=== PATIENT | male | born 2000 ===

== ENCOUNTER → 2020-05-22 11:31 | Outpatient (BNVA) | payer OTHER, SELFPAY | PROVIDERS: PCP Physician Assistant; Visit Provider Physician Assistant | DX: Z76.89 Persons encountering health services in other specified circumstances (principal) ==

== ENCOUNTER 2020-06-19 12:20 | Outpatient (REF) | payer OTHER, SELFPAY ==
--- NOTE | 2020-06-19 12:36 | XR_ITS ---
EXAMINATION: XR CLAVICLE, LEFT CLINICAL INFORMATION: Follow-up fracture. COMPARISON: Left clavicle 05/13/2020 TECHNIQUE: Two views of the left clavicle. FINDINGS: There is slowly healing left midclavicular fracture stabilized with superior metallic plate and screws in satisfactory alignment. XR/XR clavicle LT IMPRESSION: Stabilized left midclavicular fracture with metallic plate and screws and minimal callus formation.
== END 2020-06-19 12:21 | disposition home or self-care (01) ==
LOC: HO.HOSX 12:20
PROVIDERS: PCP Physician Assistant; Referring Provider Physician Assistant; Visit Provider Orthopaedic Surgery
DX: S42.009A Fracture of unspecified part of unspecified clavicle, initial encounter for closed fracture (principal)
CPT/HCPCS: 73000; 99212

== ENCOUNTER 2020-06-25 16:03 | Outpatient (REF) | payer OTHER, SELFPAY ==
[2020-06-25 16:45] LABS: COVID-19 Test Negative (Negative)
== END 2020-06-25 16:04 | disposition home or self-care (01) ==
LOC: HO.LAB 16:03
PROVIDERS: Visit Provider Internal Medicine
DX: Z20.828 Contact with and (suspected) exposure to other viral communicable diseases (principal)
CPT/HCPCS: 87635

== ENCOUNTER 2020-07-28 07:08 | Outpatient (REF) | payer OTHER, SELFPAY ==
[2020-07-28 07:46] LABS: COVID-19 Test Negative (Negative)
== END 2020-07-28 07:09 | disposition home or self-care (01) ==
LOC: HO.EMPCOV 07:08
PROVIDERS: Visit Provider Internal Medicine
DX: Z20.828 Contact with and (suspected) exposure to other viral communicable diseases (principal)
CPT/HCPCS: 87635; C9803

== ENCOUNTER 2020-08-11 07:46 | Outpatient (REF) | payer OTHER, SELFPAY | END 2020-08-11 07:47 | disposition home or self-care (01) | LOC: HO.HOSX 07:46 | PROVIDERS: Visit Provider Orthopaedic Surgery | DX: Z13.89 Encounter for screening for other disorder (principal) ==

== ENCOUNTER 2020-08-25 08:23 | Outpatient (REF) | payer OTHER, SELFPAY ==
--- NOTE | 2020-08-25 08:55 | XR_ITS ---
EXAMINATION: XR CLAVICLE, LEFT CLINICAL INFORMATION: Clavicle fracture COMPARISON: Previous x-ray most recent May 2020 TECHNIQUE: Two views of the left clavicle. FINDINGS: There is a side plate and 8 screws transfixing the left clavicle fracture. Orthopedic hardware is intact. Comminuted left mid clavicle fracture is still seen and appears unchanged from most recent exam 06/19/2020. Soft tissues are unremarkable. XR/XR clavicle LT IMPRESSION: ORIF of left clavicle fracture. Comminuted fracture appears unchanged from May 2020.
== END 2020-08-25 08:24 | disposition home or self-care (01) ==
LOC: HO.HOSX 08:23
PROVIDERS: Visit Provider Orthopaedic Surgery
DX: S42.002A Fracture of unspecified part of left clavicle, initial encounter for closed fracture (principal)
CPT/HCPCS: 73000; 99212

== ENCOUNTER 2020-09-29 08:00 | Outpatient (REF) | payer OTHER, SELFPAY ==
--- NOTE | ~2020-09-29 | XR_ITS ---
EXAMINATION: XR CLAVICLE, LEFT CLINICAL INFORMATION: Fracture. COMPARISON: Multiple priors, most recent left clavicle radiographs dated 08/25/2020 TECHNIQUE: PA and tangential views of the left clavicle. FINDINGS: Superior stabilization plate with fixation screws in unchanged alignment. No acute hardware fracture. No perihardware lucency to suggest loosening or infection. Redemonstration of a clavicular fracture in unchanged anatomic alignment with associated sclerosis and mild interval new bone/callus formation. No lytic or blastic osseous lesion. XR/XR clavicle LT IMPRESSION: Left clavicular ORIF without evidence of complication. Redemonstration of a clavicular fracture with mild interval new bone/callus formation.
== END 2020-09-29 08:01 | disposition home or self-care (01) ==
LOC: HO.HOSX 08:00
PROVIDERS: Visit Provider Orthopaedic Surgery
DX: S42.002G Fracture of unspecified part of left clavicle, subsequent encounter for fracture with delayed healing (principal)
CPT/HCPCS: 73000; 99212

== ENCOUNTER 2020-10-08 11:15 | Emergency (ER) | payer OTHER, SELFPAY | END 2020-10-08 12:39 | disposition left against medical advice (07) | PROVIDERS: Emergency Provider Emergency Medicine; PCP Physician Assistant | DX: M54.5 Low back pain (principal) ==

== ENCOUNTER 2020-11-20 06:12 | Outpatient (REF) | payer OTHER, SELFPAY ==
[2020-11-20 06:46] LABS: COVID-19 Test Negative (Negative)
== END 2020-11-20 06:13 | disposition home or self-care (01) ==
LOC: HO.LAB 06:12
PROVIDERS: Visit Provider Internal Medicine
DX: Z20.822 Contact with and (suspected) exposure to COVID-19 (principal)
CPT/HCPCS: 36415; 87635

== ENCOUNTER 2020-11-24 07:28 | Outpatient (REF) | payer OTHER, SELFPAY ==
--- NOTE | ~2020-11-24 | XR_ITS ---
EXAMINATION: XR CLAVICLE, LEFT CLINICAL INFORMATION: Clavicular fracture. COMPARISON: Multiple priors, most recent left clavicle radiographs dated 09/29/2020. TECHNIQUE: Straight AP and cephalad angulated AP views of the left clavicle. FINDINGS: Redemonstration of a dorsal clavicular stabilization plate with fixation screws. No acute hardware fracture. No perihardware lucency to suggest loosening or infection. Mid left clavicular fracture in unchanged anatomic alignment with interval new bone/callus formation when compared to the prior examination. No osseous erosion. No abnormal soft tissue calcification. XR/XR clavicle LT IMPRESSION: Left clavicular ORIF without evidence of hardware complication. Mid left clavicular fracture in unchanged alignment with increased new bone/callus formation.
== END 2020-11-24 07:29 | disposition home or self-care (01) ==
LOC: HO.HOSX 07:28
PROVIDERS: Visit Provider Orthopaedic Surgery
DX: S42.002A Fracture of unspecified part of left clavicle, initial encounter for closed fracture (principal); X58.XXXA Exposure to other specified factors, initial encounter; Y93.9 Activity, unspecified; Y92.9 Unspecified place or not applicable; Y99.8 Other external cause status
CPT/HCPCS: 73000; 99212

== ENCOUNTER 2020-12-26 08:17 | Outpatient (REF) | payer OTHER, SELFPAY ==
[2020-12-26 08:36] LABS: COVID-19 Test Negative (Negative); IDNOW Serial# 55D5AD1C
== END 2020-12-26 08:18 | disposition home or self-care (01) ==
LOC: HO.LAB 08:17
PROVIDERS: Visit Provider Internal Medicine
DX: Z20.822 Contact with and (suspected) exposure to COVID-19 (principal)
CPT/HCPCS: 36415; 87635; C9803

== ENCOUNTER 2021-01-22 12:24 | Outpatient (REF) | payer OTHER, SELFPAY | END 2021-01-22 12:25 | disposition home or self-care (01) | LOC: HO.HOSX 12:24 | PROVIDERS: Visit Provider Orthopaedic Surgery | DX: Z13.89 Encounter for screening for other disorder (principal) ==

== ENCOUNTER 2021-02-17 16:56 | Emergency (ER) | payer OTHER, SELFPAY ==
--- NOTE | ~2021-02-17 | XR_ITS ---
EXAMINATION: XR SHOULDER, LEFT CLINICAL INFORMATION: Shoulder pain following trauma. COMPARISON: Most recent left clavicle radiographs dated 11/24/2020. TECHNIQUE: AP, Grashey, scapular Y views of the left shoulder. FINDINGS: No acute fracture or dislocation. No joint space narrowing or marginal osteophytes. No osseous erosion. Stabilization plate and fixation screws at the clavicle without acute hardware fracture. No periarticular lucency to suggest loosening or infection. Chronic mid clavicular fracture with increase osseous bridging when compared to the prior examination. No change in osseous alignment. XR/XR shoulder LT min 2V IMPRESSION: 1. No acute fracture or dislocation. 2. Left clavicular ORIF without evidence of hardware complication. Increased interval osseous bridging across the fracture when compared to the most recent clavicular radiographs.
[2021-02-17 17:04] VITALS: BP 138/78; PULSE 77; RESP 18; TEMP 36.7; O2SAT 97; BMI 28.8
[2021-02-17 18:42] VITALS: BP 140/66; PULSE 69; RESP 16; O2SAT 96
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
== END 2021-02-17 21:08 | disposition home or self-care (01) ==
PROVIDERS: Emergency Provider Emergency Medicine; PCP Physician Assistant
DX: S43.402A Unspecified sprain of left shoulder joint, initial encounter (principal); V49.60XA Unspecified car occupant injured in collision with unspecified motor vehicles in traffic accident, initial encounter; Y93.9 Activity, unspecified; Y92.410 Unspecified street and highway as the place of occurrence of the external cause; Y99.9 Unspecified external cause status
CPT/HCPCS: 73030; 99283; 99284

== ENCOUNTER 2021-03-09 12:39 | Outpatient (REF) | payer OTHER, SELFPAY | END 2021-03-09 12:40 | disposition home or self-care (01) | LOC: HO.HOSX 12:39 | PROVIDERS: Visit Provider Orthopaedic Surgery | DX: Z13.89 Encounter for screening for other disorder (principal) ==

== ENCOUNTER 2021-03-23 09:04 | Emergency (ER) | payer OTHER, SELFPAY ==
--- NOTE | ~2021-03-23 | XR_ITS ---
EXAMINATION: XR KNEE, RIGHT XR KNEE, LEFT CLINICAL INFORMATION: Bilateral knee pain COMPARISON: Radiographs left knee 06/17/2014 TECHNIQUE: Each knee is imaged in 4 views. There are a total of 8 views. FINDINGS: Right: Normal bony mineralization. No fracture, dislocation, or destructive process. There is a fibrous cortical defect at the posterior lateral aspect diaphyseal metaphyseal junction distal femur measuring 1.4 x 0.7 cm. There is questionable trace fluid suprapatellar bursa. No overt effusion. Hoffa's fat pad appears normal. There is no joint narrowing or erosive change or chondrocalcinosis. Left: Bony mineralization normal. No fracture, dislocation, destructive process, or suprapatellar effusion. Hoffa's fat pad appears normal. There is no joint narrowing or erosive change or chondrocalcinosis. XR/XR knee LT 4V IMPRESSION: 1. Right: Trace suprapatellar fluid. No fracture or destructive process. Incidental distal femoral fibrous cortical defect 1.4 x 0.7 cm. 2. Left: Normal.
--- NOTE | ~2021-03-23 | XR_ITS ---
EXAMINATION: XR KNEE, RIGHT XR KNEE, LEFT CLINICAL INFORMATION: Bilateral knee pain COMPARISON: Radiographs left knee 06/17/2014 TECHNIQUE: Each knee is imaged in 4 views. There are a total of 8 views. FINDINGS: Right: Normal bony mineralization. No fracture, dislocation, or destructive process. There is a fibrous cortical defect at the posterior lateral aspect diaphyseal metaphyseal junction distal femur measuring 1.4 x 0.7 cm. There is questionable trace fluid suprapatellar bursa. No overt effusion. Hoffa's fat pad appears normal. There is no joint narrowing or erosive change or chondrocalcinosis. Left: Bony mineralization normal. No fracture, dislocation, destructive process, or suprapatellar effusion. Hoffa's fat pad appears normal. There is no joint narrowing or erosive change or chondrocalcinosis. XR/XR knee RT 4V IMPRESSION: 1. Right: Trace suprapatellar fluid. No fracture or destructive process. Incidental distal femoral fibrous cortical defect 1.4 x 0.7 cm. 2. Left: Normal.
[2021-03-23 09:32] VITALS: BP 124/66; PULSE 63; RESP 18; TEMP 36.6; O2SAT 99; BMI 28.6
--- NOTE | 2021-03-23 10:00 | ED.EXTPRO ---
HPI - Extremity Problem General Chief complaint: Extremity Injury, Lower Stated complaint: Knees hurt Time Seen by Provider: 03/23/21 10:00 Source: patient Mode of arrival: ambulatory Limitations: no limitations History of Present Illness MD Complaint: joint paint Onset (ago): month(s) (1) Pain Consistency: intermittent Location: left, right and knee Quality: aching Radiation: none Relieving factors: nothing Exacerbating factors: weight bearing (on his feet all the time at work) Associated symptoms: denies other symptoms Related Data Previous Rx's Medication Instructions Recorded bone stimulator #1 ea 10/09/20 naproxen 500 mg tablet 500 mg PO BID PRN #20 tab 02/17/21 Allergies Allergy/AdvReac Type Severity Reaction Status Date / Time No Known Allergies Allergy Verified 03/08/21 09:34 Review of Systems Review of Systems: Constitutional : No Fever, No Chills ENT/Mouth : No Ear Pain, No Hoarseness, No sore throat Eyes: No Eye Pain, No Swelling, No Redness, No Foreign Body Cardiovascular : No Chest Pain, No SOB Respiratory : No Cough, No Dyspnea Gastrointestinal : No Nausea, No Vomiting, No Diarrhea, No abdominal Pain Genitourinary : No Dysuria, No Hematuria Musculoskeletal : positive joint pain, No Myalgias, No Joint Swelling Skin : No Skin lacerations, No rash Neuro : No Weakness, No Numbness, No Loss of Consciousness, No Dizziness, No Headache Psych : No Anxiety/Panic, No Depression Heme/Lymph: no easy bruising, no Lymphadenopathy Endocrine : No Polyuria, No Polydipsia All other systems reviewed and are negative [facility] Past Medical History Medical History Clavicle fracture Pneumonia Surgical History History of lung surgery History of open reduction and internal fixation (ORIF) procedure (~05/13/20) Family History Family History Mother No problems noted. Father No problems noted. 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 Oriented X3. No acute distress. Eyes: Pupils equal, round and reactive to light. ENT: Pharynx normal. Neck: Normal inspection. Neck supple. CVS: Normal heart rate and rhythm. Pulses normal. Respiratory: No respiratory distress. Breath sounds normal. Abdomen: Soft and non-tender. Skin: Skin warm and dry. Normal skin color. Normal skin turgor. Extremities: No lower extremity edema. No calf ttp normal appearing knees Neuro: Oriented X 3. No motor deficit. No sensory deficit. MDM - Extremity (Nontraumatic) MDM Narrative Medical decision making narrative: 20 yo male with R and L knee pain x 1 month likely brought on by standing at work, overall the knees appear normal no signs of infection will obtain xrays for early signs of arthritis and lyme test, refer to PCP Discharge Plan Discharge Clinical Impression: Bilateral knee pain Patient Disposition: Home, Self-Care Instructions: Knee Pain (ED) Additional Instructions: return to ED for any worsening symptoms or concerns Prescriptions: No Action naproxen 500 mg tablet 500 mg PO BID PRN (Reason: pain) Qty: 20 RF: 0 (DME) bone stimulator See Rx Instructions .Route .MEDSUPPLY Qty: 1 RF: 0 Referrals: Physician,Unknown [Primary Care Provider] - 5 days (if not better - PCP) Stand Alone Forms: Work/School Release
[2021-03-24 09:06] LABS: Lyme Abs Screen <0.90 index
== END 2021-03-23 11:32 | disposition home or self-care (01) ==
PROVIDERS: Emergency Provider Emergency Medicine
DX: M25.562 Pain in left knee (principal); M25.561 Pain in right knee
CPT/HCPCS: 36415; 73564; 86617; 86618; 99284

== ENCOUNTER 2021-03-26 09:07 | Emergency (ER) | payer OTHER, SELFPAY ==
[2021-03-26 09:14] VITALS: BP 133/69; PULSE 70; RESP 16; TEMP 36; O2SAT 98; BMI 28.6
--- NOTE | 2021-03-26 09:19 | ED_ITS ---
HPI - Extremity Injury (Lower) General Chief Complaint: Extremity Injury, Lower Stated Complaint: knee problem Time Seen by Provider: 03/26/21 09:15 Source: patient Mode of arrival: ambulatory Limitations: no limitations History of Present Illness HPI Narrative: 20 y/o male presenting to the ER from home with bilateral knee pain for the last month. He was seen here for the same on 03/23 - had XR's and a Lyme test performed both of which were unremarkable. He reports continued knee pain when he is at work. No known specific injury or trauma. He is on his feet several hours per day and works several days in a row. He wear an unsupportive, cheap sneaker from [employer] and it feels like I'm walking on bricks. He denies numbness, tingling or weakness in either LE. MD complaint: knee injury Onset (ago): month(s) (1) Type of Injury: unknown Place: work Severity: moderate Relieving factors: nothing Exacerbating factors: weight bearing Other symptoms: none Related Data Previous Rx's Medication Instructions Recorded bone stimulator #1 ea 10/09/20 naproxen 500 mg tablet 500 mg PO BID PRN #20 tab 02/17/21 Allergies Allergy/AdvReac Type Severity Reaction Status Date / Time No Known Allergies Allergy Verified 03/08/21 09:34 Review of Systems Constitutional: Constitutional: Denies chills and Denies fever(s) Cardiovascular: Cardiovascular: Denies chest pain and Denies dyspnea Respiratory: Respiratory: Denies dyspnea Musculoskeletal: Musculoskeletal: Denies abnormal gait, Denies deformity, Reports arthralgias, Denies joint swelling, Denies limited range of motion, Denies muscle cramps, Denies muscle weakness, Denies numbness and Reports stiffness Integumentary/Breasts: Skin/Breast: Denies swelling Neurologic: Denies abnormal gait and Denies numbness Psychiatric: Psychiatric: Reports anxiety PMFSH Past Medical History Attestation statement: The following information was validated with the patient. Medical History Clavicle fracture Pneumonia Surgical History History of lung surgery History of open reduction and internal fixation (ORIF) procedure (~05/13/20) Family History Family History Mother No problems noted. Father No problems noted. 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 Oriented X3. No acute distress. HEENT: normal inspection CVS: Normal heart rate and rhythm. Pulses normal. Respiratory: No respiratory distress. Skin: Skin warm and dry. Normal skin color. Normal skin turgor. No rashes. Extremities: normal inspection of bilateral knees. normal ROM, no joint laxity appreciated. mild generalized tenderness without focal or point tenderness. no calf tenderness. no skin changes. Neuro: Oriented X 3. No motor deficit. No sensory deficit. Normal gait. Course Course Course Narrative: 20 y.o male presenting for the 2nd time this week with bilateral nontraumatic knee pain. XR's unremarkable and Lyme negative 3 days ago. We discussed importance of rest, ice, knee braces for support as well as changing his shoes to a more supportive sneaker. He agrees to make the above changes as well as follow up with his PCP and Orthopedics for further workup. He is stable for discharge home with supportive care. Discharge Plan Discharge Clinical Impression: Knee pain Qualifiers: Chronicity: unspecified Laterality: bilateral Qualified Code(s): M25.561 - Pain in right knee Patient Disposition: Home, Self-Care Instructions: Knee Pain (ED) Additional Instructions: Recommend trial of ibuproofen 600mg every 6-8 hours for knee pain - take with food. Rest. Use ice several times per day. Recommend new, supportive sneaker for work. Use knee braces or TIMOTHY wraps for support and compression. If no improvement with these measures, recommend following up with Orthopedics for further workup and management. Prescriptions: No Action naproxen 500 mg tablet 500 mg PO BID PRN (Reason: pain) Qty: 20 RF: 0 (DME) bone stimulator See Rx Instructions .Route .MEDSUPPLY Qty: 1 RF: 0 Referrals: Antonio Barton MD [Physician] - 1 week (bilateral knee pain) Stand Alone Forms: Work/School Release Interventions: ED Discharge Assessment Last Done: 03/26/21 09:55 Discharge Date/Time: 03/26/21 09:56
== END 2021-03-26 09:56 | disposition home or self-care (01) ==
LOC: HO.ED 09:22
PROVIDERS: Emergency Provider Emergency Medicine
DX: M25.561 Pain in right knee (principal); Z79.899 Other long term (current) drug therapy
CPT/HCPCS: 99283

== ENCOUNTER 2021-04-09 08:14 | Outpatient (REF) | payer OTHER, SELFPAY | END 2021-04-09 08:15 | disposition home or self-care (01) | LOC: HO.HOSX 08:14 | PROVIDERS: Visit Provider Physician Assistant | DX: Z13.89 Encounter for screening for other disorder (principal) ==

== ENCOUNTER → 2021-05-04 12:20 | Outpatient (BNVA) | payer OTHER, SELFPAY | PROVIDERS: Visit Provider Internal Medicine | DX: Z13.89 Encounter for screening for other disorder (principal) | CPT/HCPCS: 73140; 99203 ==

== ENCOUNTER 2021-05-07 12:29 | Outpatient (REF) | payer OTHER, SELFPAY ==
--- NOTE | ~2021-05-07 | XR_ITS ---
EXAMINATION: XR CLAVICLE, LEFT CLINICAL INFORMATION: Left clavicular fracture. COMPARISON: Most recent left shoulder radiographs dated 03/19/2021. TECHNIQUE: Straight AP and cephalad angulated AP views of the left clavicle. FINDINGS: Redemonstration of a superior stabilization plate and fixation screws in the left clavicle. No acute hardware fracture. No prior hardware lucency to suggest loosening or infection. Healed midclavicular fracture in unchanged anatomic alignment. No acute fracture or dislocation. No lytic or blastic osseous lesion. XR/XR clavicle LT IMPRESSION: Left clavicular ORIF without evidence of hardware complication. Healed left clavicular fracture in unchanged anatomic alignment.
== END 2021-05-07 12:30 | disposition home or self-care (01) ==
LOC: HO.HOSX 12:29
PROVIDERS: Visit Provider Orthopaedic Surgery
DX: S42.002A Fracture of unspecified part of left clavicle, initial encounter for closed fracture (principal)
CPT/HCPCS: 73000; 99212

== ENCOUNTER 2021-05-13 17:29 | Emergency (ER) | payer OTHER, SELFPAY ==
[2021-05-13 17:39] VITALS: BP 129/71; PULSE 87; RESP 16; TEMP 36.5; O2SAT 98; BMI 27.8
[2021-05-13 19:56] LABS: MANUAL DIFF FLAG NO
[2021-05-13 20:02] LABS: Basophils Percent Auto 0.3 % (0-2); Eosinophils Absolute Auto 0.2 X10*3/uL (0.0-0.4); Eosinophils Percent Auto 1.8 % (0-4); Hematocrit 44.7 % (42-52); Hemoglobin 14.5 g/dl (14.0-18.0); Imm Gran Abs Auto 0.04 X10*3/uL (0.00-0.03); Imm Gran Pct Auto 0.3 % (0.0-0.4); Lymphocytes Absolute Auto 1.5 X10*3/uL (1.2-4.9); Lymphocytes Percent Auto 12.9 % (20-40); Mean Corpuscular HGB Conc 32.4 g/dl (31.0-36.0); Mean Corpuscular Hemoglobin 26.1 pg (27.0-33.0); Mean Corpuscular Volume 80.5 fL (80-98); Mean Platelet Volume 9.2 fL (9.4-12.4); Monocytes Absolute Auto 0.7 X10*3/uL (0.1-1.2); Monocytes Percent Auto 5.5 % (2-11); Neutrophils Absolute Auto 9.3 X10*3/uL (2.0-8.3); Neutrophils Percent Auto 79.2 % (45-73); Platelet Count 280 X10*3/uL (160-400); Red Blood Count 5.55 X10*6/uL (4.60-5.80); Red Cell Distribution Width 13.3 % (11.0-16.0); White Blood Count 11.7 X10*3/uL (4.8-10.8)
[2021-05-13 20:11] LABS: Alanine Aminotransferase 22 U/L (0-40); Albumin Level 5.2 g/dL (3.5-5.0); Alkaline Phosphatase 78 U/L (39-117); Anion Gap 12 (12-20); Aspartate Amino Transferase 23 U/L (5-37); Bilirubin Direct 0.2 mg/dL (0.0-0.5); Bilirubin Total 0.6 mg/dL (0.0-1.0); Blood Urea Nitrogen 17 mg/dL (9-16); Calcium 10.2 mg/dL (8.4-10.2); Carbon Dioxide 27 mmol/L (22-29); Chloride 104 mmol/L (96-108); Creatinine Clr Calc Pharmacy 105.2; Estimated Glomerular Filt Rate > 60; Glucose Random 91 mg/dL (60-115); Lipase 18 U/L (8-78); Potassium 4.3 mmol/L (3.3-5.1); Sodium 139 mmol/L (135-145); Total Protein 8.7 g/dL (6.5-8.0)
--- NOTE | 2021-05-13 22:10 | ED_ITS ---
HPI - Abdominal Pain General Chief Complaint: Abdominal Pain Stated Complaint: Abdominal pain Time Seen by Provider: 05/13/21 22:10 Source: patient Mode of arrival: ambulatory Limitations: no limitations History of Present Illness HPI narrative: patient with epigastric pain for months. Patient was at the gym tonight and he felt nauseated and then vomited MD elicited complaint: abdominal pain Pertinent past history: none Onset (ago): month(s) Pain Consistency: intermittent Location: epigastric Severity: mild Exacerbating factors: nothing Relieving factors: nothing Associated symptoms: denies other symptoms Related Data Previous Rx's Medication Instructions Recorded bone stimulator #1 ea 10/09/20 naproxen 500 mg tablet 500 mg PO BID PRN #20 tab 02/17/21 pantoprazole 40 mg tablet,delayed 40 mg PO DAILY #20 tab 05/13/21 release (Protonix) Allergies Allergy/AdvReac Type Severity Reaction Status Date / Time No Known Allergies Allergy Verified 03/08/21 09:34 Review of Systems Constitutional: Reports no additional constitutional complaints Eyes: Reports no additional eye complaints Denies dizziness Cardiovascular: Reports no additional cardiovascular complaints Respiratory: Reports as per HPI Gastrointestinal: Reports no additional gastrointestinal complaints Musculoskeletal: Reports no additional musculoskeletal complaints Skin/Breast: Denies rash Reports system reviewed and no additional complaints, except as documented, Denies dizziness and Denies Sensory deficit (Neuro) Psychiatric: Denies anxiety Physical Exam Vital Signs: Vital Signs: Last Vital Signs Temp 97.7 F 05/13/21 17:39 Pulse 87 05/13/21 17:39 Resp 16 05/13/21 17:39 BP 129/71 05/13/21 17:39 Pulse Ox 98 05/13/21 17:39 Body Mass Index 27.8 Const: General: healthy appearing Nutritional Appearance: average body habitus Orientation/consciousness: oriented to person and patient oriented x3 Limitations: no limitations HENMT: Head: Yes normal to inspection Ears: external ears normal General nose exam: Normal external nose present Mouth: Normal oral and palatal mucosa present and oropharynx normal Throat: Yes posterior oropharynx normal Eyes: General: appearance normal, both eyes and all related structures Neck: Other: supple Neck: Yes normal visual inspection Chest: Chest palpation & inspection: normal inspection of the chest Resp: Auscultation: clear to auscultation bilaterally Cardio: Jugular venous distension: no JVD Rate: regular rate Rhythm: regular rhythm Heart sounds: S1 normal heart sound present and S2 normal heart sound present GI: Inspection: Yes normal to inspection Palpation (GI): Soft to palpation, nontender and No hepatosplenomegaly present Auscultation: normal bowel sounds : General: Yes no CVA tenderness Back/Spine/Pelvis: Back: no CVA tenderness Skin: General skin exam: no rashes or lesions noted Neuro: General: oriented to person and patient oriented x3 Cranial nerves: Yes CN's II-XII intact bilaterally Motor exam (neuro): 5/5 motor strength present throughout Sensory Exam: No Sensory deficit (Neuro) Extrem: General: Yes normal to inspection Psych: Appearance: grossly normal Course Reevaluation(s) Reevaluation #1: patient with a few month history of epigastric pain, Physical normal. vital, CBC and LFTs normal. Will start protonix and have patient follow up with pmd Time: 22:16 [facility] - Abdominal Pain Lab Data Result diagrams: 05/13/21 19:50 05/13/21 19:50 Labs: Lab Results 05/13/21 05/13/21 Range/Units 19:50 19:50 WBC 11.7 H (4.8-10.8) X10*3/uL RBC 5.55 (4.60-5.80) X10*6/uL Hgb 14.5 (14.0-18.0) g/dl Hct 44.7 (42-52) % MCV 80.5 (80-98) fL MCH 26.1 L (27.0-33.0) pg MCHC 32.4 (31.0-36.0) g/dl RDW 13.3 (11.0-16.0) % Plt Count 280 (160-400) X10*3/uL MPV 9.2 L (9.4-12.4) fL Immature Gran % (Auto) 0.3 (0.0-0.4) % Neut % (Auto) 79.2 H (45-73) % Lymph % (Auto) 12.9 L (20-40) % [place] % (Auto) 5.5 (2-11) % Eos % (Auto) 1.8 (0-4) % Baso % (Auto) 0.3 (0-2) % Lymph # (Auto) 1.5 (1.2-4.9) X10*3/uL [place] # (Auto) 0.7 (0.1-1.2) X10*3/uL Eos # (Auto) 0.2 (0.0-0.4) X10*3/uL Baso # (Auto) 0.0 (0.0-0.2) X10*3/uL Abs Immat Gran (auto) 0.04 H (0.00-0.03) X10*3/uL Absolute Neuts (auto) 9.3 H (2.0-8.3) X10*3/uL Absolute Nucleated RBC 0.000 (0.0-0.012) X10*3/uL Nucleated RBC % (auto) 0.0 (0.0-0.2) /100WBC Sodium 139 (135-145) mmol/L Potassium 4.3 (3.3-5.1) mmol/L Chloride 104 (96-108) mmol/L Carbon Dioxide 27 (22-29) mmol/L Anion Gap 12 (12-20) BUN 17 H (9-16) mg/dL Creatinine 1.24 (0.5-1.4) mg/dL Estim Creat Clear Calc 105.2 Estimated GFR > 60 Random Glucose 91 (60-115) mg/dL Calcium 10.2 (8.4-10.2) mg/dL Total Bilirubin 0.6 (0.0-1.0) mg/dL Direct Bilirubin 0.2 (0.0-0.5) mg/dL AST 23 (5-37) U/L ALT 22 (0-40) U/L Alkaline Phosphatase 78 (39-117) U/L Total Protein 8.7 H (6.5-8.0) g/dL Albumin 5.2 H (3.5-5.0) g/dL Lipase 18 (8-78) U/L Discharge Plan Discharge Clinical Impression: Gastritis and duodenitis Patient Disposition: Home, Self-Care Instructions: Gastritis (ED), Duodenitis (ED) Prescriptions: New pantoprazole [Protonix] 40 mg tablet,delayed release (DR/EC) 40 mg PO DAILY Qty: 20 RF: 0 No Action naproxen 500 mg tablet 500 mg PO BID PRN (Reason: pain) Qty: 20 RF: 0 (DME) bone stimulator See Rx Instructions .Route .MEDSUPPLY Qty: 1 RF: 0 Referrals: Ryland Kaur PA-C [Primary Care Provider] - 10 days PMFSH Past Medical History Medical History Clavicle fracture Pneumonia Surgical History History of lung surgery History of open reduction and internal fixation (ORIF) procedure (~05/13/20) Family History Family History Mother No problems noted. Father No problems noted. 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
== END 2021-05-13 22:28 | disposition home or self-care (01) ==
LOC: HO.ED 22:27
PROVIDERS: Emergency Provider Emergency Medicine; PCP Physician Assistant
DX: K29.70 Gastritis, unspecified, without bleeding (principal); K29.80 Duodenitis without bleeding; R10.13 Epigastric pain; Z79.899 Other long term (current) drug therapy
CPT/HCPCS: 36415; 80048; 80076; 83690; 85025; 99283

== ENCOUNTER 2021-08-26 08:41 | Emergency (ER) | payer OTHER, SELFPAY ==
[2021-08-26 09:22] VITALS: BP 113/65; PULSE 68; RESP 18; TEMP 36.8; O2SAT 100; BMI 26.4
== END 2021-08-26 12:50 | disposition left against medical advice (07) ==
PROVIDERS: Emergency Provider Emergency Medicine
DX: L72.9 Follicular cyst of the skin and subcutaneous tissue, unspecified (principal)
CPT/HCPCS: 99281

== ENCOUNTER 2021-09-01 05:52 | Emergency (ER) | payer OTHER, SELFPAY | END 2021-09-01 06:07 | disposition left against medical advice (07) | PROVIDERS: Emergency Provider Emergency Medicine; PCP Physician Assistant | DX: L72.9 Follicular cyst of the skin and subcutaneous tissue, unspecified (principal) ==

== ENCOUNTER 2022-01-22 20:54 | Emergency (ER) | payer OTHER, SELFPAY ==
[2022-01-22 21:19] VITALS: BP 126/68; PULSE 60; RESP 20; TEMP 36.8; O2SAT 100; BMI 25.8
--- NOTE | 2022-01-22 22:08 | ED.ANIMALBIT ---
HPI - Animal Bite General Chief Complaint: Animal Bite Stated Complaint: dog bite Time Seen by Provider: 01/22/22 21:46 Source: patient Mode of arrival: ambulatory Limitations: no limitations History of Present Illness HPI narrative: bit by his own dog dog is UTD on rabies - injury to left lower palm complaint: animal bite Onset (ago): minute(s) (prior to arrival ) Animal: dog Description of animal: household pet Mechanism: bite Location - Extremities: left: hand Pain description: dull Context: playing with animal Associated symptoms: none Treatments prior to arrival: wound dressing(s) Related Data Previous Rx's Medication Instructions Recorded bone stimulator #1 ea 10/09/20 naproxen 500 mg tablet 500 mg PO BID PRN #20 tab 02/17/21 amoxicillin 875 mg-potassium 1 tab PO BID #14 tab 01/22/22 clavulanate 125 mg tablet Allergies Allergy/AdvReac Type Severity Reaction Status Date / Time No Known Allergies Allergy Verified 09/16/21 08:36 Review of Systems Review of Systems: Constitutional : No Fever, No Chills, Cardiovascular : No Chest Pain, No SOB Respiratory : No Dyspnea Gastrointestinal : No abdominal pain Musculoskeletal : No Joint Swelling Skin : No rash, positive skin laceration Neuro : No Weakness, No Numbness PMFSH Past Medical History Attestation statement: The following information was validated with the patient. Medical History Clavicle fracture Pneumonia Surgical History History of lung surgery History of open reduction and internal fixation (ORIF) procedure (~05/13/20) Family History Family History Mother No problems noted. Father No problems noted. Social History Social History Housing: House Alcohol intake: current Alcohol intake frequency: holidays/special occasions only Patient Tobacco Use Status: Never used Tobacco e-Cigarette/Vaping Use: Never Used Second Hand Smoke Exposure: No Substance Use Type: Marijuana Advance Directives: No Advance Directives Information Provided: No Current occupational status: unemployed Physical Exam ED Vital Signs: Vital Signs - 24 hr 01/22/22 21:19 Temperature 98.3 F Pulse Rate 60 Respiratory Rate 20 Blood Pressure 126/68 Pulse Oximetry 100 BMI result Body Mass Index 25.8 Appearance: Alert. Oriented X3. No acute distress. Eyes: Pupils equal, round and reactive to light. ENT: Pharynx normal. Neck: Normal inspection. Neck supple. CVS: Pulses normal. Respiratory: No respiratory distress. Abdomen: Soft and nontender. Skin: Skin warm and dry. Normal skin color. Normal skin turgor. Extremities: No lower extremity edema. L lower palm jagged very superficial laceration/abrasion 3cm - full ROM of fingers including thumb can fully abduct and adduct thumb including making ring sign with all other digits and keep pressure against resistance Neuro: Oriented X 3. No motor deficit. No sensory deficit. MDM - Animal Bite MDM Narrative Medical decision making narrative: 21 yo male with isolated dog bite to L palm no signs of tendon or nerve injury will apply one stitch loosely to approximate wound, dog is UTD on rabies, update patient's Tdap and start on augmentin, wound care precautions Procedures Laceration Laceration 1: Site: hand Side (If applicable): left Size (cm): 3 Description: irregular Depth: simple, single layer Local Anesthetic: lidocaine 1% Amount of anesthesia used (mL): 3 Pre-repair: wound explored and irrigated extensively (betadine wash) Skin layer closed with: nylon Size (cm): 5-0 Number of sutures: 2 Technique: simple, interrupted Discharge Plan Discharge Clinical Impression: Dog bite Qualifiers: Encounter type: initial encounter Qualified Code(s): W54.0XXA - Bitten by dog, initial encounter Hand laceration Qualifiers: Encounter type: initial encounter Foreign body presence: without foreign body Laterality: left Qualified Code(s): S61.412A - Laceration without foreign body of left hand, initial encounter Patient Disposition: Home, Self-Care Instructions: Animal Bite (ED), Laceration (ED) Additional Instructions: return to ED for any worsening symptoms or concerns take antibiotics, monitor for redness, fevers, yellow drainage suture out in 7 days okay to shower only but do not soak in ocean, pool, hot tub or dirty dishes Prescriptions: New amoxicillin-pot clavulanate 875-125 mg tablet 1 tab PO BID Qty: 14 0RF No Action naproxen 500 mg tablet 500 mg PO BID PRN (Reason: pain) Qty: 20 0RF (DME) bone stimulator See Rx Instructions .Route .MEDSUPPLY Qty: 1 0RF Rx Instructions: As directed Referrals: Ryland Kaur PA-C [Primary Care Provider] - 1 week (suture removal)
--- NOTE | 2022-01-22 22:38 | PC.NURSE ---
Assumed care of pt Pt c/o dog bite on palm of LT hand. 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 Per pt, occured around 2119 at [place]. Per MD Santiago, no need for documentation because someone watching the dog.
[2022-01-22] MEDS: Diphth,Pertus(ACell),Tet Adult 0.5 ML SYRINGE IM (22:54)
[2022-01-22] MEDS: Amoxicillin/Potassium Clav 875 MG TABLET PO (22:55)
[2022-01-22] MEDS: Lidocaine HCl 1 % MPF 5 ML VIAL SUBCUT (22:57)
== END 2022-01-22 23:04 | disposition home or self-care (01) ==
PROVIDERS: Emergency Provider Emergency Medicine; PCP Physician Assistant
DX: S61.452A Open bite of left hand, initial encounter (principal); W54.0XXA Bitten by dog, initial encounter; Y93.9 Activity, unspecified; Y92.009 Unspecified place in unspecified non-institutional (private) residence as the place of occurrence of the external cause; Y99.9 Unspecified external cause status
CPT/HCPCS: 12002; 90471; 90715; 99284

== ENCOUNTER 2022-01-29 12:26 | Emergency (ER) | payer OTHER, SELFPAY ==
--- NOTE | ~2022-01-29 | XR_ITS ---
EXAMINATION: XR FOOT, RIGHT CLINICAL INFORMATION: Stepped on nail with pain to the fourth of the foot. COMPARISON: None TECHNIQUE: AP, lateral, and oblique views of the right foot. FINDINGS: The bones and soft tissues are normal. No fracture. Alignment is anatomic. Joint spaces are maintained. XR/XR foot RT min 3V IMPRESSION: Unremarkable right foot exam.
[2022-01-29 12:31] VITALS: BP 126/70; PULSE 78; RESP 18; TEMP 36.4; O2SAT 100; BMI 25.8
--- NOTE | 2022-01-29 13:26 | ED_ITS ---
HPI - Recheck/Abnormal Lab/Rx General Chief Complaint: Extremity Problem Stated Complaint: suture removal and foot inj Time Seen by Provider: 01/29/22 13:06 Source: patient Mode of arrival: ambulatory Limitations: no limitations History of Present Illness HPI narrative: 21-year-old male who is seen here on 01/22/2022 for dog bite to his hand and had 2 sutures placed currently on Augmentin presenting to the ED for suture removal and reports a separate complaint of of right foot pain after he stepped on a nail yesterday while he was at work which went through the sole of his shoe. He reports he is unsure if he is up-to-date on tetanus. He reports he still taking the antibiotics that was prescribed for the dog bite. He denies any thoughts of foreign bodies or any paresthesias or any drainage from the site or any other symptoms complaints or concerns at this time. MD complaint: suture/staple removal Initial visit (ago): week(s) (1) Initial visit for: laceration and animal bite Returns today for: staple/stitch removal Symptoms since prior visit: no new symptoms and improved Associated symptoms: none Treatments prior to arrival: other (See above) Related Data Previous Rx's Medication Instructions Recorded bone stimulator #1 ea 10/09/20 naproxen 500 mg tablet 500 mg PO BID PRN pain #20 tabs 02/17/21 amoxicillin 875 mg-potassium 1 tab PO BID #14 tabs 01/22/22 clavulanate 125 mg tablet ciprofloxacin HCl 500 mg tablet 500 mg PO BID Foot puncture wound 01/29/22 (Cipro) 14 days #28 tabs Allergies Allergy/AdvReac Type Severity Reaction Status Date / Time No Known Allergies Allergy Verified 01/29/22 12:31 Review of Systems Review of Systems: Constitutional : No Weight loss, No Fever, No Chills, No Night Sweats, No Fatigue, No Malaise ENT/Mouth : No Hearing loss, No Ear Pain, No Nasal Congestion, No Sinus Pain, No Hoarseness, No sore throat, No Rhinorrhea, No Swallowing Difficulty Eyes: No Eye Pain, No Swelling, No Redness, No Foreign Body, No Discharge, No Vision Changes Cardiovascular : No Chest Pain, No SOB, No Dyspnea on Exertion, No Orthopnea, No Edema, No Palpitations Respiratory : No Cough, No Sputum, No Wheezing, No Smoke Exposure, No Dyspnea Gastrointestinal : No Nausea, No Vomiting, No Diarrhea, No Constipation, No abdominal Pain, No Hematochezia, No Melena Genitourinary : no irregular bleeding, No Dysuria, No Urinary Frequency, No Hematuria, No Urinary Incontinence, No Urgency, No Flank Pain, No Urinary Flow Changes, No Hesitancy Musculoskeletal : + well-healing wound with [address], + puncture wound to right foot, No joint pain, No Myalgias, No Joint Swelling Skin : No Skin Lesions, No rash Neuro : No Weakness, No Numbness, No Paresthesias, No Loss of Consciousness, No Dizziness, No Headache Psych : No Anxiety/Panic, No Depression, No SI/HI/AH/VH, No Social Issues, Heme/Lymph: No Bruising, No Bleeding,No Lymphadenopathy Endocrine : No Polyuria, No Polydipsia, No Temperature Intolerance Yes all other systems are reviewed and are negative [facility] Past Medical History Attestation statement: The following information was validated with the patient. Source: old records reviewed and nursing notes reviewed Medical History Clavicle fracture Pneumonia Surgical History History of lung surgery History of open reduction and internal fixation (ORIF) procedure (~05/13/20) Family History Family History Mother No problems noted. Father No problems noted. Social History Social History Housing: House Alcohol intake: current Alcohol intake frequency: holidays/special occasions only Patient Tobacco Use Status: Never used Tobacco e-Cigarette/Vaping Use: Never Used Second Hand Smoke Exposure: No Substance Use Type: Marijuana Advance Directives: No Advance Directives Information Provided: No Current occupational status: unemployed Physical Exam Vital Signs: Vital Signs: Last Vital Signs Temp 97.5 F 01/29/22 12:31 Pulse 78 01/29/22 12:31 Resp 18 01/29/22 12:31 BP 126/70 01/29/22 12:31 Pulse Ox 100 01/29/22 12:31 O2 Del Method 01/29/22 12:31 BMI result Body Mass Index 25.8 vital signs have been reviewed as normal and appeared to be correct. Blood pressure normal Heart rate normal. Respiration rate normal. Temperature normal. Oxygen saturation normal. Appearance: Alert. Oriented X3. No acute distress. Head: Normal external exam. Normocephalic. Atraumatic. Eyes: PERRLA. EOMI. Conjunctiva and sclera normal. Eyelids normal. ENT: Pharynx normal. Uvula midline. Moist mucous membranes. Neck: Normal inspection. Neck supple. FROM. CVS: Normal heart rate and rhythm. Respiratory: No respiratory distress. Painless inspiration. Skin: Skin warm and dry. Normal skin color. Normal skin turgor. No rashes/lesions/lacerations noted. Extremities: Patient with well-healing suture to left hand with a scab overlying. No streaking/induration/fluctuance or surrounding erythema. Patient mild tenderness palpation to the right foot at the plantar aspect with a puncture wound. No foreign bodies or purulent drainage or surrounding erythema or fluctuance or induration noted. Otherwise all other extremities exhibit normal range of motion nontender. Neuro: Oriented X 3. No motor deficit. No sensory deficit. Reflexes normal. Normal steady gait. No focal neuro deficits noted. Vascular: + radial pulses/+ 2 distal pedal pulses/+2 dorsalis pedis b/l. Normal cap refill. No cyanosis noted to upper extremity nails and lower extremity toes nails. Course Course Course Narrative: 21-year-old male who is seen here on 01/22/2022 for dog bite to his hand and had 2 sutures placed currently on Augmentin presenting to the ED for suture removal and reports a separate complaint of of right foot pain after he stepped on a nail yesterday while he was at work which went through the sole of his shoe. He reports he is unsure if he is up-to-date on tetanus. He reports he still taking the antibiotics that was prescribed for the dog bite. He denies any thoughts of foreign bodies or any paresthesias or any drainage from the site or any other symptoms complaints or concerns at this time. Patient now status post suture removal. Two sutures removed. No complications. No signs of infection. Will obtain x-ray of the right foot. If no foreign bodies noted patient will be discharged on new antibiotics [facility] and tell him that he already took 7 days of Augmentin therefore he can discontinue does due to we want to cover for Pseudomonas for the puncture wound to his foot. Patient understands agrees with this plan. MDM - Recheck/Abnormal Lab/Rx Medical Records Attestation: I reviewed the patient's medical records. Imaging Data Right foot x-ray: Attestation: I personally reviewed and interpreted this imaging study as follows: Radiologist's impression: FINDINGS: The bones and soft tissues are normal. No fracture. Alignment is anatomic. Joint spaces are maintained.? XR/XR foot RT min 3V IMPRESSION: Unremarkable right foot exam. Discharge Plan Discharge Clinical Impression: Visit for suture removal, Puncture wound of foot Patient Disposition: Home, Self-Care Instructions: Puncture Wound (ED), Stitches Removal (ED) Additional Instructions: You can stop taking her previously prescribed antibiotics as you have been on the antibiotics for approximately 7 days. You can start these new antibiotics due to the of foot wound/nail you obtain. Return if any new or worsening symptoms. Follow up with her primary care provider/Work connection. Your x-ray was within normal limits. Prescriptions: New ciprofloxacin HCl [Cipro] 500 mg tablet 500 mg PO BID 14 Days Qty: 28 0RF No Action naproxen 500 mg tablet 500 mg PO BID PRN (Reason: pain) Qty: 20 0RF amoxicillin-pot clavulanate 875-125 mg tablet 1 tab PO BID Qty: 14 0RF (DME) bone stimulator See Rx Instructions .Route .MEDSUPPLY Qty: 1 0RF Rx Instructions: As directed Referrals: Ryland Kaur PA-C [Primary Care Provider] - 2 days
[2022-01-29] MEDS: Diphth,Pertus(ACell),Tet Adult 0.5 ML SYRINGE IM (13:37)
== END 2022-01-29 14:14 | disposition home or self-care (01) ==
PROVIDERS: Emergency Provider Emergency Medicine; PCP Physician Assistant
DX: S91.331A Puncture wound without foreign body, right foot, initial encounter (principal); W45.0XXA Nail entering through skin, initial encounter; S61.452D Open bite of left hand, subsequent encounter; W54.0XXD Bitten by dog, subsequent encounter; Y93.9 Activity, unspecified; Y92.9 Unspecified place or not applicable; Y99.0 Civilian activity done for income or pay
CPT/HCPCS: 73630; 90471; 90715; 99282; 99283; 99284

== ENCOUNTER 2022-03-10 09:29 | Emergency (ER) | payer OTHER, SELFPAY ==
[2022-03-10 10:26] VITALS: BP 124/68; PULSE 69; RESP 19; TEMP 36.6; O2SAT 100; BMI 26.5
[2022-03-10] MEDS: Fluorescein Sodium STRIP 1 STRIP EYE-BOTH (12:08)
[2022-03-10] MEDS: Tetracaine HCl/PF 0.5% Oph Sol 4 ML DROPS 2 DROP EYE-BOTH (12:08)
[2022-03-10] MEDS: Erythromycin Base 0.5% Oph Oin 1 GM TUBE 1 CM EYE-RIGHT (12:33)
--- NOTE | 2022-03-10 12:37 | ED_ITS ---
HPI - Eye Problem General Chief complaint: Eye Problems Stated complaint: FO in R eye/ work related Time Seen by Provider: 03/10/22 12:02 Source: patient, RN notes reviewed and old records reviewed Mode of arrival: ambulatory Limitations: no limitations History of Present Illness HPI Narrative: This is a 21 year old male who presents today with complaints of ?foreign body in his right eye since today. Patient states that he was working with wood at work and suddenly a piece of wood chipped off and he believes went into his right eye. He states that he has had discomfort in his right eye rating it as a 6/10 pain that worsens with blinking. He states that his right eye has been watering since the incident. He reports no visual changes in his right eye. He does not wear contacts, he does state that he wears eyeglasses however is not wearing them currently because his dog scratched them. His tetanus is up-to-date. No other complaints or concerns at this time. MD chief complaint: eye pain and eye injury Onset (ago): hour(s) Onset description: sudden Duration: constant Location: right eye Eye Symptoms: pain Place: home Mechanism: direct trauma Severity: moderate Severity scale (1-10): 6 If Pain, Quality: aching Associated symptoms: none Treatments Prior to Arrival: none Related Data Patient tetanus UTD: Yes Previous Rx's Medication Instructions Recorded bone stimulator #1 ea 10/09/20 naproxen 500 mg tablet 500 mg PO BID PRN pain #20 tabs 02/17/21 amoxicillin 875 mg-potassium 1 tab PO BID #14 tabs 01/22/22 clavulanate 125 mg tablet ciprofloxacin HCl 500 mg tablet 500 mg PO BID Foot puncture wound 01/29/22 (Cipro) 14 days #28 tabs erythromycin 5 mg/gram (0.5 %) eye 0.5 inch ophthalmic (eye) QID 03/10/22 ointment Corneal abrasion 7 days #3.5 grams ketorolac 0.5 % eye drops (Acular) 1 drp ophthalmic (eye) QID Corneal 03/10/22 abrasion/pain #10 mL Allergies Allergy/AdvReac Type Severity Reaction Status Date / Time No Known Allergies Allergy Verified 01/29/22 12:31 Review of Systems Review of Systems: Constitutional : No fevers, no chills, No changes in activity, No lethargy, No recent prior head injury, No agitation, No increased fussiness ENT/Mouth : No Ear Pain, No Nasal discharge/drainage Eyes: + Eye Pain, +tearing, No Vision changes/blurry/decreased vision, No Swelling, No Redness, No Photophobia, no discharge, no drainage, no itching, no eyelid edema, no contact lens uses, nno bleeding Cardiovascular : No Chest Pain, No SOB Respiratory : No Cough Gastrointestinal : No Nausea, No Vomiting, No abdominal Pain Genitourinary : No Dysuria, No Urinary Frequency, No Urinary Incontinence, No Urgency, No Flank Pain Musculoskeletal : No joint pain, No neck stiffness, No back pain/injury Skin : No lacerations Neuro : No unsteady gait, No Paresthesias, No Loss of Consciousness, No altered mental status, No dizziness, No Headache Denies past medical history of HIV, recent trauma, coagulopathy, recent spinal/ epidural procedure, new medication, URI symptoms, close contacts with similar symptoms, tick bite, or known CO2 exposure. Yes all other systems are reviewed and are negative PMF Past Medical History Medical History Clavicle fracture Pneumonia Surgical History History of lung surgery History of open reduction and internal fixation (ORIF) procedure (~05/13/20) Family History Family History Mother No problems noted. Father No problems noted. Social History Social History Housing: House Alcohol intake: current Alcohol intake frequency: holidays/special occasions only Patient Tobacco Use Status: Never used Tobacco e-Cigarette/Vaping Use: Never Used Second Hand Smoke Exposure: No Substance Use Type: Marijuana Advance Directives: No Advance Directives Information Provided: Yes Current occupational status: unemployed Physical Exam 2 Vital Signs: Vital Signs: Last Vital Signs Temp 98 F 03/10/22 10:26 Pulse 69 03/10/22 10:26 Resp 19 03/10/22 10:26 BP 124/68 03/10/22 10:26 Pulse Ox 100 03/10/22 10:26 O2 Del Method 03/10/22 10:26 BMI result Body Mass Index 26.5 Vital signs have been reviewed as normal and appeared to be correct. Blood pressure 124/68. Heart rate normal. Respiration rate normal. Temperature normal. Oxygen saturation normal. Appearance: Alert. Oriented X3. No acute distress. Head: Normal external exam. Normocephalic. Atraumatic. No Hutton signs noted. No raccoon eyes noted Eyes: PERRLA. EOMI. Right conjunctiva is mildly injected. 1mm horizontal corneal abrasion noted at the 8 o'clock position. No foreign body seen. Funduscopic exam within normal limits. Sclera normal. Eyelids normal. No papilledema noted. Anterior chamber normal. No photophobia noted. ENT: EAC normal. TM's Normal. Pharynx normal. Uvula midline. Moist mucous membranes. Neck: Normal inspection. Neck supple. FROM. No adenopathy. Thyroid Normal. No meningeal signs. No neck mass noted. CVS: Normal heart rate and rhythm. Heart sound normal. No murmurs noted. Pulses normal throughout. Respiratory: No respiratory distress. Painless inspiration. Breath sounds normal. Back: Full range of motion noted. Skin: Skin warm and dry. Normal skin color. Normal skin turgor. No rashes/lesions/lacerations noted. Extremities: No lower extremity edema. Extremities exhibit normal range of motion. Extremities nontender. Neuro: Oriented X 3. No motor deficit. No sensory deficit. Reflexes normal. Course Course Course Narrative: 1230 This is a 21 year old male who presents today with complaints of ?foreign body in his right eye since today. Fluorescein eye exam performed with Wood lamp, see procedure note. Patient does not wear contacts and he is up-to-date with his tetanus immunization. We will discharge him with erythromycin eye ointment for prophylaxis. Patient advised to return with any new or worsening symptoms, patient understands agrees with this plan. Procedures Procedure Narrative Procedure Narrative: 2 drops of Tetracaine eye drops instilled in right eye. Fluorescein Stain achieved, with uptake in superficial corneal abrasion noted at the 8 o'clock position, no foreign body noted. Right eye flushed using eye wash and saline flush. Patient tolerated procedure well without any complications or concerns. Discharge Plan Discharge Clinical Impression: Abrasion of cornea, right, Work related injury Patient Disposition: Home, Self-Care Instructions: Corneal Abrasion (ED), Return to Work Instructions (ED) Prescriptions: New erythromycin 5 mg/gram (0.5 %) ointment 0.5 inch ophthalmic (eye) QID 7 Days Qty: 3.5 0RF ketorolac [Acular] 0.5 % drops 1 drp ophthalmic (eye) QID Qty: 10 0RF No Action naproxen 500 mg tablet 500 mg PO BID PRN (Reason: pain) Qty: 20 0RF amoxicillin-pot clavulanate 875-125 mg tablet 1 tab PO BID Qty: 14 0RF ciprofloxacin HCl [Cipro] 500 mg tablet 500 mg PO BID 14 Days Qty: 28 0RF (DME) bone stimulator See Rx Instructions .Route .MEDSUPPLY Qty: 1 0RF Rx Instructions: As directed Referrals: Ryland Kaur PA-C [Primary Care Provider] - 2 days Mateo Corbin [Physician] - 1 week (Call tomorrow to make a follow-up appointment within the next week) Stand Alone Forms: Work/School Release Interventions: ED Discharge Assessment Last Done: 03/10/22 12:58 Discharge Date/Time: 03/10/22 13:00
--- NOTE | 2022-03-10 13:01 | PC.NURSE ---
upon [place] [facility] [place] stated [place] contacts/glassess, rn performed visual acuity test with pt and again inquired re: use of glasses, pt now relates that his mothers dog scratched them up but he is suppose to wear them, melanie cummings
== END 2022-03-10 13:00 | disposition home or self-care (01) ==
PROVIDERS: Emergency Provider Emergency Medicine; PCP Physician Assistant
DX: S05.01XA Injury of conjunctiva and corneal abrasion without foreign body, right eye, initial encounter (principal); Y28.9XXA Contact with unspecified sharp object, undetermined intent, initial encounter; Y93.9 Activity, unspecified; Y92.9 Unspecified place or not applicable; Y99.0 Civilian activity done for income or pay; Z79.899 Other long term (current) drug therapy
CPT/HCPCS: 99283

== ENCOUNTER 2022-03-16 09:09 | Outpatient (REF) | payer OTHER, SELFPAY ==
--- NOTE | ~2022-03-16 | XR_ITS ---
EXAMINATION: XR KNEES, STANDING AP XR KNEE, RIGHT XR KNEE, LEFT CLINICAL INFORMATION: Bilateral knee pain. COMPARISON: Bilateral knee radiographs 03/23/2021. TECHNIQUE: Standing AP view of both knees is performed. Right knee is also imaged in lateral and axial patella views. Left knee is also imaged in lateral x2 and axial patella views. FINDINGS: Right: No fracture or dislocation. Normal bony mineralization. No joint narrowing or erosive change or chondrocalcinosis. Axial view patella shows no lateralization or tilting. Lateral view demonstrates small suprapatellar effusion with mild thickening of the suprapatellar bursa. Hoffa's fat pad appears normal. There is a small stable fibrous cortical defect posterior lateral aspect diaphyseal metaphyseal junction distal femur, less conspicuous than on prior study 2020. Left: No fracture, dislocation, destructive process. No joint narrowing or erosive change or chondrocalcinosis. Hoffa's fat pad appears normal. The patella shows no lateralization or tilting. There is small suprapatellar effusion with mild thickening of the suprapatellar bursa. XR/XR knee RT 2V IMPRESSION: -Small bilateral suprapatellar effusions with mild thickening bursa on each side. -No joint narrowing or erosive change or chondrocalcinosis.
--- NOTE | ~2022-03-16 | XR_ITS ---
EXAMINATION: XR HAND WRIST, LEFT CLINICAL INFORMATION: M79.642 - Pain in left hand COMPARISON: Radiographs left hand/finger 01/24/2014. TECHNIQUE: The left hand and wrist are imaged together in 3 large [id number] images. A navicular view of the wrist is included for a total of 4 views. FINDINGS: Normal bony mineralization. Ulnar variance is neutral. Pronator quadratus fat. Normal. There is no acute or healing fracture, dislocation, destructive process. No focal joint narrowing or erosive change. No arthropathy. XR/XR hand wrist LT IMPRESSION: Normal study.
--- NOTE | ~2022-03-16 | XR_ITS ---
EXAMINATION: XR KNEES, STANDING AP XR KNEE, RIGHT XR KNEE, LEFT CLINICAL INFORMATION: Bilateral knee pain. COMPARISON: Bilateral knee radiographs 03/23/2021. TECHNIQUE: Standing AP view of both knees is performed. Right knee is also imaged in lateral and axial patella views. Left knee is also imaged in lateral x2 and axial patella views. FINDINGS: Right: No fracture or dislocation. Normal bony mineralization. No joint narrowing or erosive change or chondrocalcinosis. Axial view patella shows no lateralization or tilting. Lateral view demonstrates small suprapatellar effusion with mild thickening of the suprapatellar bursa. Hoffa's fat pad appears normal. There is a small stable fibrous cortical defect posterior lateral aspect diaphyseal metaphyseal junction distal femur, less conspicuous than on prior study 2020. Left: No fracture, dislocation, destructive process. No joint narrowing or erosive change or chondrocalcinosis. Hoffa's fat pad appears normal. The patella shows no lateralization or tilting. There is small suprapatellar effusion with mild thickening of the suprapatellar bursa. XR/XR knee LT 2V IMPRESSION: -Small bilateral suprapatellar effusions with mild thickening bursa on each side. -No joint narrowing or erosive change or chondrocalcinosis.
--- NOTE | ~2022-03-16 | XR_ITS ---
EXAMINATION: XR KNEES, STANDING AP XR KNEE, RIGHT XR KNEE, LEFT CLINICAL INFORMATION: Bilateral knee pain. COMPARISON: Bilateral knee radiographs 03/23/2021. TECHNIQUE: Standing AP view of both knees is performed. Right knee is also imaged in lateral and axial patella views. Left knee is also imaged in lateral x2 and axial patella views. FINDINGS: Right: No fracture or dislocation. Normal bony mineralization. No joint narrowing or erosive change or chondrocalcinosis. Axial view patella shows no lateralization or tilting. Lateral view demonstrates small suprapatellar effusion with mild thickening of the suprapatellar bursa. Hoffa's fat pad appears normal. There is a small stable fibrous cortical defect posterior lateral aspect diaphyseal metaphyseal junction distal femur, less conspicuous than on prior study 2020. Left: No fracture, dislocation, destructive process. No joint narrowing or erosive change or chondrocalcinosis. Hoffa's fat pad appears normal. The patella shows no lateralization or tilting. There is small suprapatellar effusion with mild thickening of the suprapatellar bursa. XR/XR knee standing BI IMPRESSION: -Small bilateral suprapatellar effusions with mild thickening bursa on each side. -No joint narrowing or erosive change or chondrocalcinosis.
[2022-03-16 10:38] LABS: Hematocrit 42.4 % (42.0-52.0); Hemoglobin 13.6 g/dl (14.0-18.0); Mean Corpuscular HGB Conc 32.1 g/dl (31.0-36.0); Mean Corpuscular Hemoglobin 26.1 pg (27.0-33.0); Mean Corpuscular Volume 81.2 fL (80.0-98.0); Mean Platelet Volume 9.4 fL (9.4-12.4); Platelet Count 293 X10*3/uL (160-400); Red Blood Count 5.22 X10*6/uL (4.60-5.80); Red Cell Distribution Width 13.8 % (11.0-16.0); White Blood Count 6.5 X10*3/uL (4.8-10.8)
[2022-03-16 11:33] LABS: Alanine Aminotransferase 18 U/L (0-40); Albumin Level 4.6 g/dL (3.5-5.0); Alkaline Phosphatase 63 U/L (39-117); Anion Gap 12 (12-20); Aspartate Amino Transferase 24 U/L (5-37); Bilirubin Total 0.6 mg/dL (0.0-1.0); Blood Urea Nitrogen 13 mg/dL (9-16); Calcium 9.3 mg/dL (8.4-10.2); Carbon Dioxide 25 mmol/L (22-29); Chloride 109 mmol/L (96-108); Estimated Glomerular Filt Rate > 60; Glucose Fasting 97 mg/dL (60-99); Potassium 4.4 mmol/L (3.3-5.1); Sodium 142 mmol/L (135-145); Total Protein 7.7 g/dL (6.5-8.0)
[2022-03-16 11:56] LABS: TSH reflex Free T4 1.51 uIU/mL (0.32-4.0)
== END 2022-03-16 09:10 | disposition home or self-care (01) ==
LOC: HO.LAB 09:09
PROVIDERS: PCP Physician Assistant; Visit Provider Physician Assistant
DX: Z13.29 Encounter for screening for other suspected endocrine disorder (principal); M79.642 Pain in left hand; M25.562 Pain in left knee; M25.561 Pain in right knee
CPT/HCPCS: 36415; 73110; 73130; 73560; 73565; 80053; 84443; 85027

== ENCOUNTER → 2022-06-09 09:15 | Outpatient (RCR) | payer OTHER, SELFPAY ==
[2020-07-01 18:14] LABS: COVID-19 Test Negative (Negative)
[2020-07-07 06:33] LABS: COVID-19 Test Negative (Negative); IDNOW Serial# 55D5AD1C
[2020-07-16 14:35] LABS: COVID-19 Test Negative (Negative)
[2020-07-21 07:02] LABS: COVID-19 Test Negative (Negative)
[2020-07-31 15:06] LABS: COVID-19 Test Negative (Negative)
[2020-08-04 07:23] LABS: COVID-19 Test Negative (Negative)
[2020-08-13 11:51] LABS: SARS-COV-2 PCR UMBRL Not detected
[2020-08-20 08:16] LABS: SARS-COV-2 PCR UMBRL Not Detected
[2020-08-27 07:25] LABS: COVID-19 Test Positive (Negative)
[2020-08-28 09:44] LABS: SARS-COV-2 PCR UMBRL Not Detected
[2020-09-10 10:22] LABS: SARS-COV-2 PCR UMBRL INDETERMINATE
[2020-09-17 08:50] LABS: SARS-COV-2 PCR UMBRL NEGATIVE
== END | disposition home or self-care (01) ==
LOC: HO.EMPCOV 07-01 14:10
PROVIDERS: Visit Provider Internal Medicine
DX: Z20.828 Contact with and (suspected) exposure to other viral communicable diseases (principal)
CPT/HCPCS: 36415; 87635; C9803; U0003

== ENCOUNTER 2024-03-22 13:15 | Outpatient (REF) | payer OTHER, SELFPAY | END 2024-03-22 13:16 | disposition home or self-care (01) | LOC: HO.HOSX 13:15 | PROVIDERS: Visit Provider Orthopaedic Surgery | DX: Z13.89 Encounter for screening for other disorder (principal) ==

== ENCOUNTER 2024-06-28 09:12 | Emergency (ER) | payer OTHER, SELFPAY ==
--- NOTE | ~2024-06-28 | CT_ITS ---
EXAMINATION: CT ABDOMEN AND PELVIS WITH CONTRAST CLINICAL INFORMATION: Dominant abdominal pain COMPARISON: None available. TECHNIQUE: Multidetector volumetric images were obtained from the superior aspect of the liver through the pubic symphysis following administration 85 mL of Omnipaque 350 intravenous contrast. Sagittal and coronal reformatted images were obtained on the technologist's workstation. Oral contrast: No This CT examination was performed using dose optimization techniques as appropriate, variously including the following: *Automated exposure control *Adjustment of mA and/or kV according to patient size (this includes techniques or standardized protocols for targeted exams where dose is matched to indication/reason for exam; i.e. extremities or head) *Use of iterative reconstruction technique DLP: 516 mGy-cm FINDINGS: LUNG BASES: The visualized lung bases are unremarkable. LIVER, GALLBLADDER, AND BILIARY TREE: The liver is normal in size, shape, and attenuation. No focal hepatic lesion or biliary ductal dilatation is present. The gallbladder is unremarkable with no evidence of radiopaque gallstones, gallbladder wall thickening, or obvious pericholecystic inflammatory changes. PANCREAS: Unremarkable. SPLEEN: Unremarkable. ADRENAL GLANDS: Unremarkable. KIDNEYS AND URETERS: The kidneys are normal in size, shape, and attenuation. No hydronephrosis, hydroureter, or calculi seen. No perinephric stranding. BLADDER: Unremarkable. GASTROINTESTINAL TRACT: The small and large bowel are unremarkable. The appendix is unremarkable. ABDOMINAL WALL: No significant hernia is appreciated. LYMPH NODES: Normal. VASCULAR: Unremarkable. PELVIC VISCERA: Unremarkable. OSSEOUS STRUCTURES: There is a right paracentral disc protrusion, partially calcified, and L5-S1. Degenerative disc disease is evident at L4-5. CT/CT abdomen pelvis w IV con IMPRESSION: 1. No acute findings in the abdomen or pelvis. 2. Right paracentral partially calcified disc protrusion at L5-S1. Fleischner guidelines were followed. Electronically signed by: Hunter Horton MD 06/28/2024 02:12 PM [facility]
[2024-06-28 09:13] VITALS: BP 122/64; PULSE 75; RESP 20; TEMP 36.2; O2SAT 100; BMI 25.1
[2024-06-28 09:49] LABS: MANUAL DIFF FLAG NO
[2024-06-28 09:50] LABS: Basophils Absolute Auto 0.1 X10*3/uL (0.0-0.2); Basophils Percent Auto 0.9 % (0-2); Eosinophils Absolute Auto 0.1 X10*3/uL (0.0-0.4); Eosinophils Percent Auto 1.4 % (0-4); Hematocrit 45.1 % (42.0-52.0); Hemoglobin 15.2 g/dl (14.0-18.0); Imm Gran Abs Auto 0.03 X10*3/uL (0.00-0.03); Imm Gran Pct Auto 0.4 % (0.0-0.4); Lymphocytes Absolute Auto 1.1 X10*3/uL (1.2-4.9); Lymphocytes Percent Auto 15.2 % (20-40); Mean Corpuscular HGB Conc 33.7 g/dl (31.0-36.0); Mean Corpuscular Hemoglobin 27.2 pg (27.0-33.0); Mean Corpuscular Volume 80.8 fL (80.0-98.0); Mean Platelet Volume 9.5 fL (9.4-12.4); Monocytes Absolute Auto 0.3 X10*3/uL (0.1-1.2); Monocytes Percent Auto 3.8 % (2-11); Neutrophils Absolute Auto 5.5 x10*3/uL (2.0-8.3); Neutrophils Percent Auto 78.3 % (45-73); Platelet Count 283 X10*3/uL (160-400); Red Blood Count 5.58 X10*6/uL (4.60-5.80); Red Cell Distribution Width 13.8 % (11.0-16.0); White Blood Count 7.1 X10*3/uL (4.8-10.8)
[2024-06-28 10:03] LABS: Alanine Aminotransferase 26 U/L (0-40); Albumin Level 5.1 g/dL (3.5-5.0); Alkaline Phosphatase 56 U/L (39-117); Anion Gap 17 (12-20); Aspartate Amino Transferase 29 U/L (5-37); Bilirubin Total 0.4 mg/dL (0.0-1.0); Blood Urea Nitrogen 12 mg/dL (9-16); Calcium 9.8 mg/dL (8.4-10.2); Carbon Dioxide 23 mmol/L (22-29); Chloride 107 mmol/L (96-108); Creatinine Clr Calc Pharmacy 106.9; Estimated Glomerular Filt Rate > 60; Ethanol 86 mg/dL; Glucose Random 114 mg/dL (60-115); Lipase 11 U/L (8-78); Sodium 143 mmol/L (135-145); Total Protein 8.5 g/dL (6.5-8.0)
--- NOTE | 2024-06-28 10:09 | ED_ITS ---
HPI - General Adult General Chief complaint: Abdominal Pain Stated complaint: abd pain-bodyache Time Seen by Provider: 06/28/24 10:07 Source: patient and family (patient's mother) Mode of arrival: ambulatory Limitations: no limitations History of Present Illness ED Provider: Brea Choudhary PA-C HPI narrative: Patient is a 23 year old assigned male at with a history of DOMINIQUE and MDD presenting to the emergency department today with abdominal pain, nausea, and vomiting. Patient states that he has been having upper abdominal pain, nausea, and vomiting. Patient states that he was vomiting and some of it was blood tinged. Patient denies any dizziness, lightheadedness, fever, chills, blurry vision, double vision, loss of vision, chest pain, difficulty breathing, shortness of breath, back pain, night sweats, pain with urination, increased urinary frequency, increased urinary urgency, blood in his urine or stool, syncope or a near syncopal episode, recent trauma or falls, bowel incontinence, bladder incontinence, or any other complaints at this time. Relieving factors: none Exacerbating factors: none Associated symptoms: nausea/vomiting Treatments prior to arrival: none Related Data Previous Rx's ?Medication ?Instructions ?Recorded bone stimulator #1 ea 10/09/20 albuterol sulfate 90 mcg/actuation 1 inh inhalation QID PRN shortness 09/09/22 aerosol inhaler (Ventolin HFA) of breath or wheezing #8.5 grams Allergies Allergy/AdvReac Type Severity Reaction Status Date / Time No Known Allergies Allergy Verified 06/28/24 09:17 Review of Systems 2 Constitutional: Constitutional: Reports no additional constitutional complaints, Denies chills, Denies fever(s) and Denies night sweats Eyes: Eyes: Reports no additional eye complaints, Denies blurry vision, Denies change in vision, Denies diplopia, Denies eye discharge, Denies loss of vision and Denies eye pain ENT: Denies dizziness Cardiovascular: Cardiovascular: Reports no additional cardiovascular complaints, Denies chest pain, Denies lightheadedness, Denies Loss of Consciousness and Denies dyspnea Respiratory: Respiratory: Reports no additional respiratory complaints and Denies dyspnea Gastrointestinal: Gastrointestinal: Reports no additional gastrointestinal complaints, Reports abdominal pain, Denies melena, Denies hematochezia, Denies change in bowel habits, Denies change in stool character, Reports nausea and Reports vomiting Genitourinary: Genitourinary: Reports no additional male genitourinary complaints, Denies hematuria, Denies oliguria, Denies difficulty urinating, Denies dysuria, Denies urinary frequency, Denies urinary hesitancy, Denies urinary incontinence and Denies urinary urgency Musculoskeletal: Musculoskeletal: Reports no additional musculoskeletal complaints, Denies numbness and Denies tingling Neurologic: Denies dizziness, Denies loss of vision, Denies numbness and Denies tingling Psychiatric: Psychiatric: Reports no additional psychiatric complaints Endocrine: Endocrine: Reports no additional endocrine complaints Hematologic/Lymphatic: Hematologic/Lymphatic: Reports no additional hematologic/lymphatic complaints Allergic/Immunologic: Allergic/Immunologic: Reports no additional allergic/immunologic complaints [facility] Past Medical History Attestation statement: The following information was validated with the patient. Source: old records reviewed and nursing notes reviewed Medical History Asthma Pneumonia Clavicle fracture Surgical History History of lung surgery History of open reduction and internal fixation (ORIF) procedure (~05/13/20) Family History Family History Mother No problems noted. Father No problems noted. Social History Social History Housing: House Alcohol intake: current Alcohol intake frequency: 3 or more drinks per day Alcohol type: beer and wine Patient Tobacco Use Status: Never used Tobacco Smoked in Last 30 Days: Yes e-Cigarette/Vaping Use: Never Used Second Hand Smoke Exposure: No Use of substances other than those prescribed or required for medical reasons: Yes Substance Use Type: Marijuana Substance Use Frequency: Daily Advance Directives: No Advance Directives Information Provided: Yes Current occupational status: unemployed Cognitive needs: No Hearing needs: No Vision needs: No Physical Exam ED Vital Signs: Vital Signs - 24 hr 06/28/24 09:13 06/28/24 11:22 06/28/24 14:35 Temperature 97.1 F Pulse Rate 75 78 Respiratory Rate 20 16 13 Blood Pressure 122/64 109/71 132/72 Pulse Oximetry 100 100 100 Oxygen Delivery Method Room Air Room Air Room Air BMI result Body Mass Index 25.1 Const General: cooperative, no acute distress, alert and awake Nutritional Appearance: well nourished Orientation/consciousness: patient oriented x3 Limitations: no limitations HENMT Head: Yes normal to inspection and Yes atraumatic Ears: hearing grossly normal bilaterally and external ears normal General nose exam: Normal external nose present, no nasal discharge noted and no epistaxis Face and sinus: Yes normal facial exam, No abrasion and No laceration Mouth: Normal oral and palatal mucosa present, no drooling and no muffled voice Eyes General: appearance normal, both eyes and all related structures Periorbital: periorbital findings normal Eyelids: Yes eyelids normal Conjunctivae: conjunctivae normal Pupils: Equal, round and reactive pupils present EOM: EOMs intact bilaterally Neck Neck: Yes normal visual inspection, Yes full ROM and Yes no lymphadenopathy Chest Chest palpation & inspection: normal inspection of the chest Resp Effort & Inspection: normal respiratory effort and able to speak in complete sentences GI Inspection: Yes normal to inspection Neuro General: patient oriented x3 and moves all extremities Cranial nerves: Yes Equal, round and reactive pupils present Cognition (Neuro): normal cognition Extrem General: Yes normal to inspection, Yes full ROM and Yes capillary refill normal Psych Appearance: grossly normal Mental Status: mental status grossly normal Affect: normal affect Attitude: cooperative Thought process: Normal thought process present Thought content: Normal thought content present Insight: Good insight present (Psych) Medications Administered Discontinued Medications Generic Name Dose Route Start Last Admin Trade Name Freq PRN Reason Stop Dose Admin Iohexol 100 ml 06/28/24 12:39 06/28/24 12:39 Iohexol 350 Mg/Ml 100 Ml Infus..Btl IV 06/28/24 12:40 85 ml ONCE ONE Administration Morphine Sulfate 4 mg 06/28/24 10:06/28/24 10:19 Morphine Sulfate 4 Mg/Ml Cartridge IVPUSH 06/28/24 10:08 4 mg ONCE ONE Administration Protocol Ondansetron HCl 4 mg 06/28/24 10:06/28/24 10:19 Ondansetron Hcl 4 Mg/2 Ml Vial IVPUSH 06/28/24 10:08 4 mg ONCE ONE Administration Pantoprazole Sodium 40 mg 06/28/24 10:07 06/28/24 10:19 Pantoprazole Sodium 40 Mg/10 Ml Vial IVPUSH 11/07/24 10:08 40 mg ONCE ONE Administration Sucralfate 1 gm 06/28/24 10:11 06/28/24 10:19 Sucralfate Oral Suspension 1 Gm/10 Ml Oral.Susp PO 06/28/24 10:12 1 gm ONCE ONE Administration Medical Decision Making Medical Decision Making [facility] Narrative: Patient is a 23 year old assigned male at with a history of DOMINIQUE and MDD presenting to the emergency department today with abdominal pain, nausea, and vomiting. Patient's physical exam was unremarkable. Patient's blood work was unremarkable. Patient's abdomen/pelvis CT showed no acute process. I explained my physical exam findings as well as all test results to the patient. I answered all questions asked by the patient. Patient received IV morphine which, upon re- evaluation, he stated it helped his symptoms significantly. I stressed the importance of the patient taking his medication as directed (either prescribed or as the over the counter packaging recommends). I stressed the importance of the patient following up with his primary care provider. I stressed the importance of the patient returning to the emergency department immediately if his symptoms were to worsen or if he were to develop any dizziness, shortness of breath, difficulty breathing, chest pain, blurry vision, loss of vision, nausea, vomiting, abdominal pain, fever, chills, back pain, or any other complaints. Patient verbalized agreement and understanding with this treatment plan and discharge. Differential Diagnosis Differential Diagnoses: The differential diagnosis associated with the presentation includes Abdominal pain Epigastric pain Pancreatitis Appendicitis Nausea Vomiting Admission/Observation Consideration of admission/observation: Escalation of care including admission/observation considered Patient would have been admitted to the hospital had his work up had any findings where hospital admission was appropriate and his clinical presentation warranted hospital admission. Lab Data [facility] Lab Attestation statement: I reviewed the patient's lab results. My interpretation of these results are in the [facility] Rationale portion of this note. 06/28/24 09:45 06/28/24 09:45 Labs: Lab Results 06/28/24 06/28/24 Range/Units 09:45 11:31 WBC 7.1 (4.8-10.8) X10*3/uL RBC 5.58 (4.60-5.80) X10*6/uL Hgb 15.2 (14.0-18.0) g/dl Hct 45.1 (42.0-52.0) % MCV 80.8 (80.0-98.0) fL MCH 27.2 (27.0-33.0) pg MCHC 33.7 (31.0-36.0) g/dl RDW 13.8 (11.0-16.0) % Plt Count 283 (160-400) X10*3/uL MPV 9.5 (9.4-12.4) fL Immature Gran % (Auto) 0.4 (0.0-0.4) % Neut % (Auto) 78.3 H (45-73) % Lymph % (Auto) 15.2 L (20-40) % [place] % (Auto) 3.8 (2-11) % Eos % (Auto) 1.4 (0-4) % Baso % (Auto) 0.9 (0-2) % Lymph # (Auto) 1.1 L (1.2-4.9) X10*3/uL [place] # (Auto) 0.3 (0.1-1.2) X10*3/uL Eos # (Auto) 0.1 (0.0-0.4) X10*3/uL Baso # (Auto) 0.1 (0.0-0.2) X10*3/uL Abs Immat Gran (auto) 0.03 (0.00-0.03) X10*3/uL Absolute Neuts (auto) 5.5 (2.0-8.3) x10*3/uL Absolute Nucleated RBC 0.000 (0.0-0.012) X10*3/uL Nucleated RBC % (auto) 0.0 (0.0-0.2) /100WBC Sodium 143 (135-145) mmol/L Potassium 4.0 (3.3-5.1) mmol/L Chloride 107 (96-108) mmol/L Carbon Dioxide 23 (22-29) mmol/L Anion Gap 17 (12-20) BUN 12 (9-16) mg/dL Creatinine 1.10 (0.5-1.4) mg/dL Estim Creat Clear Calc 106.9 Estimated GFR > 60 Random Glucose 114 (60-115) mg/dL Calcium 9.8 (8.4-10.2) mg/dL Total Bilirubin 0.4 (0.0-1.0) mg/dL AST 29 (5-37) U/L ALT 26 (0-40) U/L Alkaline Phosphatase 56 (39-117) U/L Total Protein 8.5 H (6.5-8.0) g/dL Albumin 5.1 H (3.5-5.0) g/dL Lipase 11 (8-78) U/L Ethyl Alcohol 86 mg/dL Influenza Type A (PCR) NEGATIVE (Negative) Influenza Type B (PCR) NEGATIVE (Negative) RSV RNA Qual (PCR) NEGATIVE (Negative) SARS-CoV-2 RNA (RT-PCR) NEGATIVE (Negative) Independent Interpretation I performed an independent interpretation of an: CT Scan Interpretation: My interpretation is in agreement with the radiologist's impression of this imaging study. L EXAMINATION: CT ABDOMEN AND PELVIS WITH CONTRAST CLINICAL INFORMATION: Dominant abdominal pain COMPARISON: None available. TECHNIQUE: Multidetector volumetric images were obtained from the superior aspect of the liver through the pubic symphysis following administration 85 mL of Omnipaque 350 intravenous contrast. Sagittal and coronal reformatted images were obtained on the technologist's workstation. Oral contrast: No This CT examination was performed using dose optimization techniques as appropriate, variously including the following: *Automated exposure control *Adjustment of mA and/or kV according to patient size (this includes techniques or standardized protocols for targeted exams where dose is matched to indication/reason for exam; i.e. extremities or head) *Use of iterative reconstruction technique DLP: 516 mGy-cm FINDINGS: LUNG BASES: The visualized lung bases are unremarkable. LIVER, GALLBLADDER, AND BILIARY TREE: The liver is normal in size, shape, and attenuation. No focal hepatic lesion or biliary ductal dilatation is present. The gallbladder is unremarkable with no evidence of radiopaque gallstones, gallbladder wall thickening, or obvious pericholecystic inflammatory changes. PANCREAS: Unremarkable. SPLEEN: Unremarkable. ADRENAL GLANDS: Unremarkable. KIDNEYS AND URETERS: The kidneys are normal in size, shape, and attenuation. No hydronephrosis, hydroureter, or calculi seen. No perinephric stranding. BLADDER: Unremarkable. GASTROINTESTINAL TRACT: The small and large bowel are unremarkable. The appendix is unremarkable. ABDOMINAL WALL: No significant hernia is appreciated. LYMPH NODES: Normal. VASCULAR: Unremarkable. PELVIC VISCERA: Unremarkable. OSSEOUS STRUCTURES: There is a right paracentral disc protrusion, partially calcified, and L5-S1. Degenerative disc disease is evident at L4-5. CT/CT abdomen pelvis w IV con IMPRESSION: 1. No acute findings in the abdomen or pelvis. 2. Right paracentral partially calcified disc protrusion at L5-S1. Fleischner guidelines were followed. Electronically signed by: Hunter Horton MD 06/28/2024 02:12 PM [facility] Dictated By: Hunter Horton MD Signed By: Electronically signed by Hunter Horton MD 06/28/24 1412 Radiology Impression Discussion of test interpretation with radiology: I have reviewed the radiologist's reading. Independent Historian Clinical information obtained from an independent historian. History obtained from or confirmed by: Parent (patient's mother provided additional history and confirmed the history provided by the patient.) Critical Care Time Critical Care Time Critical Care Time: Yes Total Critical Care Time: 36 Attestation: I spent 36 minutes of Critical Care Time with this patient. This does not include time spent on separately reported billable procedures. Discharge Plan Discharge Clinical Impression: Abdominal pain Patient Disposition: Home, Self-Care Instructions: Abdominal Pain (ED) Additional Instructions: Your work up today was reassuring. Follow up with your primary care provider. Return to the emergency department immediately if your symptoms worsen or if you develop any dizziness, shortness of breath, difficulty breathing, chest pain, blurry vision, loss of vision, nausea, vomiting, abdominal pain, fever, chills, back pain, or any other complaints. Prescriptions: No Action albuterol sulfate [Ventolin HFA] 90 mcg/actuation HFA aerosol inhaler 1 inh inhalation QID PRN (Reason: shortness of breath or wheezing) Qty: 8.5 1RF (DME) bone stimulator See Rx Instructions .Route .MEDSUPPLY Qty: 1 0RF Rx Instructions: As directed Referrals: [facility] [place] Family Medicine [Provider Group] (Call to establish and follow up with a primary care provider. If you already have a primary care provider, please follow up with them.) [facility] [place] [facility] [Provider Group] (Call to establish and follow up with a primary care provider. If you already have a primary care provider, please follow up with them.) [facility] [place] [facility] [Provider Group] (Call to establish and follow up with a primary care provider. If you already have a primary care provider, please follow up with them.) Stand Alone Forms: Work/School Release Print Language: [place]ib[place]ian
[2024-06-28] MEDS: ondansetron HCL 4 MG/2 ML VIAL IVPUSH (10:19)
[2024-06-28] MEDS: Pantoprazole Sodium 40 MG/10 ML VIAL IVPUSH (10:19)
[2024-06-28] MEDS: Sucralfate Oral Suspension 1 GM/10 ML ORAL.SUSP PO (10:19)
[2024-06-28] MEDS: Morphine Sulfate 4 MG/ML CARTRIDGE IVPUSH (10:19)
[2024-06-28 11:22] VITALS: BP 109/71; PULSE 78; RESP 16; O2SAT 100
--- NOTE | 2024-06-28 11:46 | PC.NURSE ---
Assumed care of this patient at 1100, patient resting quietly on stretcher, states pain is better but not fully gone, rating 6/10. Patient still to go to CT. SARS swab obtained. VSS.
[2024-06-28 12:25] LABS: Influenza A PCR NEGATIVE (Negative); Influenza B PCR NEGATIVE (Negative); Resp Syncy Virus RNA Qual PCR NEGATIVE (Negative); SARS COV2 PCR INHOUSE NEGATIVE (Negative)
[2024-06-28] MEDS: iohexoL 350 MG/ML 100 ML INFUS..BTL IV (12:39)
[2024-06-28 14:35] VITALS: BP 132/72; RESP 13; O2SAT 100
[2024-06-28 15:04] VITALS: BP 148/58; PULSE 98; RESP 16; TEMP 36.2; O2SAT 100
== END 2024-06-28 15:04 | disposition home or self-care (01) ==
PROVIDERS: Physician Assistant Medical; Emergency Provider Emergency Medicine; PCP Orthopaedic Surgery
DX: R10.2 Pelvic and perineal pain (principal); R11.2 Nausea with vomiting, unspecified; M79.10 Myalgia, unspecified site; Z03.818 Encounter for observation for suspected exposure to other biological agents ruled out; Z79.899 Other long term (current) drug therapy
CPT/HCPCS: 0241U; 36415; 74177; 80053; 80307; 83690; 85025; 96374; 96375; 99284; J2270; J2405; J2470; Q9967

== ENCOUNTER 2024-07-30 08:54 | Outpatient (AMB) | payer OTHER, SELFPAY ==
--- NOTE | 2024-07-30 08:57 | A.OFFVIS_ITS ---
Vital Signs 07/30/24 08:58 Height 5 ft 10 in Weight 175 lb BMI 25.1 Intake Visit Reasons: OV - Discuss Lt clavicle CASSIE Intake Note: Kunal is a 23 year old ambidextrous male who presents today for a follow up of his left clavicle to discuss possible CASSIE. Hx of Left Clavicle ORIF 05/13/20. He reports that he is having discomfort of the clavicle, the shoulder locks after sitting in the same position for long periods of time. When the shoulder locks he feels that he has to punch something to release it, this has caused him to punch dupree on multiple occasions. Allergies No Known Allergies Allergy (Verified 06/28/24 09:17) HPI HPI OV - Discuss Lt clavicle CASSIE: Details: Kunal comes in today complaining of intermittent left shoulder pain. He states when he spends a period of time with his shoulder abducted and then moves his shoulder he will feel a pop or a catch over the clavicle. He otherwise has no functional deficits or complaints. [facility] Medical History Asthma Pneumonia Clavicle fracture Surgical History History of lung surgery History of open reduction and internal fixation (ORIF) procedure (~05/13/20) Family History Mother No problems noted. Father No problems noted. Social History Housing: House Alcohol intake: current Alcohol intake frequency: 3 or more drinks per day Alcohol type: beer and wine Patient Tobacco Use Status: Never used Tobacco e-Cigarette/Vaping Use: Never Used Second Hand Smoke Exposure: No Substance Use Type: Marijuana Current occupational status: unemployed Cognitive needs: No Hearing needs: No Vision needs: No Physical Exam Vital Signs: BMI result Body Mass Index 25.1 Extrem Other: Well-healed incision with full shoulder range of motion. Palpable superior clavicle plate. Results Reviewed Results Reviewed: I personally reviewed relevant radiographs. Superior clavicle plate with 8 screws and a healed midshaft clavicle fracture. Assessment & Plan Assessment & Plan (1) Clavicle fracture: Code(s): S42.009A - Fracture of unspecified part of unspecified clavicle, initial encounter for closed fracture Category: Medical Plan: This is a 23-year-old with retained hardware status post ORIF left clavicle. He would like this removed. I think this is reasonable. I discussed with him the risks, benefits and alternatives. I think the primary risk is that his symptoms are completely alleviated but the risk of infection, wound healing complications do exist. He expressed understanding and would like to proceed forward. (2) Retained orthopedic hardware: Code(s): Z96.9 - Presence of functional implant, unspecified Category: Medical Plan: Coding Level of Care Code Est Pt Level 4 (90381) Diagnoses Clavicle fracture S42.009A Retained orthopedic hardware Z96.9
[2024-07-30 08:58] VITALS: BMI 25.1
== END 2024-07-30 09:18 | disposition home or self-care (01) ==
PROVIDERS: PCP Orthopaedic Surgery; Visit Provider Orthopaedic Surgery
DX: S42.009A Fracture of unspecified part of unspecified clavicle, initial encounter for closed fracture (principal); Z96.9 Presence of functional implant, unspecified
CPT/HCPCS: 99214

== ENCOUNTER → 2024-07-30 08:54 | Outpatient (BNVA) | payer OTHER, SELFPAY | PROVIDERS: PCP Orthopaedic Surgery; Visit Provider Orthopaedic Surgery | DX: S42.009D Fracture of unspecified part of unspecified clavicle, subsequent encounter for fracture with routine healing (principal); Z96.9 Presence of functional implant, unspecified | CPT/HCPCS: 99212 ==

== ENCOUNTER 2024-09-02 05:57 | Emergency (ER) | payer OTHER, SELFPAY ==
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
[2024-09-02 06:06] VITALS: BP 156/92; PULSE 77; O2SAT 98
[2024-09-02 06:10] VITALS: BMI 27.3
[2024-09-02 06:29] VITALS: BP 137/75; PULSE 77; RESP 20; TEMP 36.9; O2SAT 100
[2024-09-02] MEDS: Acetaminophen 325 MG TABLET 975 MG PO (06:31)
--- NOTE | 2024-09-02 07:47 | ECG_ITS ---
Test Reason : TAZED Blood Pressure : */* mmHG Vent. Rate : 71 BPM Atrial Rate : 71 BPM P-R Int : 100 ms QRS Dur : 80 ms QT Int : 374 ms P-R-T Axes : 7 66 44 degrees QTcB Int : 406 ms Sinus rhythm with short TX Otherwise normal ECG No previous ECGs available Referred By: Sushma Guillen Electronically Signed By: ESTELA REYNOLDS
[2024-09-02 08:35] VITALS: BP 139/66; PULSE 79; RESP 18; O2SAT 99
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
[2024-09-02 10:01] VITALS: BP 139/66; PULSE 79; RESP 18; TEMP 36.8; O2SAT 99
== END 2024-09-02 10:03 ==
PROVIDERS: Emergency Provider Emergency Medicine
DX: S93.402A Sprain of unspecified ligament of left ankle, initial encounter (principal); S49.92XA Unspecified injury of left shoulder and upper arm, initial encounter; M79.604 Pain in right leg; M25.512 Pain in left shoulder; R94.31 Abnormal electrocardiogram [ECG] [EKG]; X58.XXXA Exposure to other specified factors, initial encounter; Y93.9 Activity, unspecified; Y92.9 Unspecified place or not applicable; Y99.8 Other external cause status
CPT/HCPCS: 73030; 73590; 73610; 73630; 93005; 99284

== ENCOUNTER → 2024-09-02 06:42 | Outpatient (BNV) | payer OTHER, SELFPAY | PROVIDERS: Visit Provider Radiology Diagnostic Radiology | DX: S42.91XA Fracture of right shoulder girdle, part unspecified, initial encounter for closed fracture (principal); M25.571 Pain in right ankle and joints of right foot; S99.921A Unspecified injury of right foot, initial encounter; S89.91XA Unspecified injury of right lower leg, initial encounter | CPT/HCPCS: 73630 ==

== ENCOUNTER → 2024-09-02 07:47 | Outpatient (BNV) | payer OTHER, SELFPAY | PROVIDERS: Emergency Provider Emergency Medicine; Visit Provider Internal Medicine | DX: T75.4XXA Electrocution, initial encounter (principal) | CPT/HCPCS: 93010 ==

== ENCOUNTER 2024-09-06 09:25 | Outpatient (AMB) | payer OTHER, SELFPAY ==
--- NOTE | 2024-09-06 09:29 | MHC.OFFVIS ---
Vital Signs 09/06/24 09:30 Height 5 ft 9 in Weight 185 lb BMI 27.3 Handedness Right Intake Visit Reasons: Preop LT clavicle CASSIE 09/12/24 NE Intake Note: Kunal is a 23 year old right hand dominant male who presents today for a pre op appointment for his left clavicle removal of hardware 09/12/24 NE. Allergies No Known Allergies Allergy (Verified 09/06/24 09:30) HPI HPI Preop LT clavicle CASSIE 09/12/24 NE: Details: Mr. Elliott is a 23-year-old right-hand dominant male who presents to the office today for preoperative appointment pending left clavicle removal of hardware on 09/12/[address] Barton. He has no known drug allergies. He has a past medical history significant for asthma [facility] Medical History Asthma Pneumonia Clavicle fracture Surgical History History of lung surgery History of open reduction and internal fixation (ORIF) procedure (~05/13/20) Family History Mother No problems noted. Father No problems noted. Social History Housing: House Alcohol intake: current Alcohol intake frequency: a few times a month Alcohol type: beer and wine Patient Tobacco Use Status: Never used Tobacco e-Cigarette/Vaping Use: Never Used Second Hand Smoke Exposure: No Substance Use Type: Marijuana Current occupational status: unemployed Cognitive needs: No Hearing needs: No Vision needs: No Review of Systems Const All systems reviewed & are unremarkable except as noted in HPI and below Physical Exam Vital Signs: BMI result Body Mass Index 27.3 Extrem Other: Left shoulder: Well-healed incision with full shoulder range of motion. Palpable superior clavicle plate. Assessment & Plan Assessment & Plan (1) Retained orthopedic hardware: Code(s): Z96.9 - Presence of functional implant, unspecified Category: Medical (2) Clavicle fracture: Code(s): S42.009A - Fracture of unspecified part of unspecified clavicle, initial encounter for closed fracture Category: Medical Plan I discussed in detail the procedure and what to expect pre and post operatively. We discussed the risks, benefits and alternatives to the surgery as well as the rehabilitation course. The risks; which include, but are not limited to infection, bleeding, nerve injury, ongoing pain, swelling, and stiffness, perioperative risk of injury to bones and soft tissues, and blood clots. I?ve answered all questions and with their understanding they have consented to move forward with left clavicle removal of hardware with Dr. Dr. Barton. Coding Level of Care Code Global (78371) Diagnoses Retained orthopedic hardware Z96.9 Clavicle fracture S42.009A
[2024-09-06 09:30] VITALS: BMI 27.3
== END 2024-09-06 09:50 | disposition home or self-care (01) ==
PROVIDERS: PCP Orthopaedic Surgery; Visit Provider Physician Assistant
DX: Z96.9 Presence of functional implant, unspecified (principal); S42.009A Fracture of unspecified part of unspecified clavicle, initial encounter for closed fracture
CPT/HCPCS: 99024

== ENCOUNTER → 2024-09-06 09:25 | Outpatient (BNVA) | payer OTHER, SELFPAY | PROVIDERS: PCP Orthopaedic Surgery; Visit Provider Physician Assistant | DX: Z01.818 Encounter for other preprocedural examination (principal); S42.002D Fracture of unspecified part of left clavicle, subsequent encounter for fracture with routine healing; X58.XXXD Exposure to other specified factors, subsequent encounter; Z96.9 Presence of functional implant, unspecified | CPT/HCPCS: 99212 ==

== ENCOUNTER 2024-09-12 10:19 | Day surgery (SDC) | payer OTHER, SELFPAY ==
[2024-09-10 09:03] VITALS: BMI 24.5
--- NOTE | 2024-09-11 10:25 | HO.ANESPROP2 ---
HPI - Anesthesia Eval Consult details Narrative: 23yo M for Left Clavivle Removal Of Hardware PMFSH Active Problems Active Problems: All Active Problems Retained orthopedic hardware (Acute) Asthma (Acute) Corneal abrasion (Acute) DOMINIQUE (generalized anxiety disorder) (Acute) Left hand pain (Acute) Patella-femoral syndrome (Acute) MDD (major depressive disorder), recurrent episode, moderate (Acute) Left anterior knee pain (Acute) Screening for diabetes mellitus (DM) (Acute) Screening for hypothyroidism (Acute) Annual physical exam (Acute) Knee pain, right anterior (Acute) Clavicle fracture (Acute) Left shoulder strain (Acute) Past Medical History Medical History Asthma Pneumonia Clavicle fracture Family History Family History Mother No problems noted. Father No problems noted. Surgical History Surgical History History of lung surgery History of open reduction and internal fixation (ORIF) procedure (~05/13/20) Social History Social History Housing: House Alcohol intake: current Alcohol intake frequency: a few times a month Alcohol type: beer and wine Patient Tobacco Use Status: Never used Tobacco e-Cigarette/Vaping Use: Never Used Second Hand Smoke Exposure: No Substance Use Type: Marijuana Current occupational status: unemployed Cognitive needs: No Hearing needs: No Vision needs: No Meds Allergies Allergy/AdvReac Type Severity Reaction Status Date / Time No Known Allergies Allergy Verified 09/06/24 09:30 Exam Height,Weight and Vital Signs: Height 5 ft 10 in Weight 77.564 kg Narrative Narrative: EKG 08/2024 Vent. Rate : 71 BPM Atrial Rate : 71 BPM P-R Int : 100 ms QRS Dur : 80 ms QT Int : 374 ms P-R-T Axes : 7 66 44 degrees QTcB Int : 406 ms Sinus rhythm with short MD Otherwise normal ECG No previous ECGs available Assessment and Plan Assessment Anesthesia Assessment: Chart Reviewed
[2024-09-12 10:32] VITALS: BMI 23.9
[2024-09-12 10:42] VITALS: BP 134/76; PULSE 69; RESP 15; TEMP 36.6; O2SAT 100
[2024-09-12] MEDS: Lactated Ringers 1,000 ML 100 ML IVCONT (10:59)
--- NOTE | 2024-09-12 12:41 | MHC.SHP ---
Pre-Procedural Eval Section A - 24 Hr Update-Section A only Date of Service: 09/12/24 The patient is an INPATIENT: No Changes since office visit: No Cold of Flu in the past 2 weeks, No New Medical Problems, No Changes in Medication and No Patient answered all questions The patient has been examined within 24 hours of the surgical procedure. The History & Physical has been completed within 30 days and I have reviewed it.: Yes Section B - Complete if H&P > 30 days Chief Complaint: Fracture of unspecified part of unspecified clavic Allergies: Allergies Allergy/AdvReac Type Severity Reaction Status Date / Time No Known Allergies Allergy Verified 09/12/24 10:42 Plan I have reviewed the history and physical and performed a pertinent physical examination on my patient. No changes have occurred unless specified. Time Spent With Patient Time: Total time managing care of this patient today ____ minutes.
--- NOTE | 2024-09-12 13:48 | P.OP_ITS ---
Operative Note Operative Note Date of Service: 09/12/24 Narrative: Date of Service: 09/12/24 Pre-op diagnosis: Retained ortho hardware left clavicle Post-op diagnosis: same Procedure: Removal of hardware left clavicle Surgeon: Antonio Barton MD Anesthesia: GETA and local Was an Human Resource Management Instructor used for this Procedure?: No Estimated blood loss (mL): 25 IV fluids (mL): 800 Pathology: none sent Condition: stable Disposition: PACU Procedure in detail: Patient was brought to the operating room and placed in the beach chair position on the surgical table. He was prepped and draped in standard sterile fashion and a time out was called to identify proper site, proper procedure and IV antib iotics per weight were administered. I began by making an incision over the previous surgical incision. Full thickness flaps were taken down to the plate and a periosteal elevator was used to remove soft tissue from the plate. 8 screws and the plate were then removed without difficulty. The screw holes and extraneous bone were debrided with a currette and rongeur. I then irrigated and performed a layered closure with absorbable suture and skin glue. Local anesthetic was administered before and after incision. The patient was placed in sterile dressings, extubated and brought to the recovery room in stable condition.
[2024-09-12 13:54] VITALS: BP 129/79; PULSE 109; RESP 16; TEMP 36.1
[2024-09-12 14:01] VITALS: BP 137/85; PULSE 95; RESP 18; O2SAT 99
[2024-09-12 14:06] VITALS: BP 137/85; PULSE 80; RESP 18; O2SAT 99
[2024-09-12 14:09] VITALS: BP 140/89; PULSE 83; RESP 16; O2SAT 99
[2024-09-12 14:23] VITALS: BP 136/87; PULSE 73; RESP 18; TEMP 36.9; O2SAT 99
== END 2024-09-12 14:55 | disposition home or self-care (01) ==
LOC: HO.SSS 10:21
PROVIDERS: Visit Provider Orthopaedic Surgery
PROC: (CPT 20680; principal; 2024-09-12 14:10)
DX: Z47.2 Encounter for removal of internal fixation device (principal); Z96.9 Presence of functional implant, unspecified; J45.909 Unspecified asthma, uncomplicated; Z87.01 Personal history of pneumonia (recurrent); Z79.899 Other long term (current) drug therapy; Z98.890 Other specified postprocedural states; Z56.0 Unemployment, unspecified
CPT/HCPCS: 20680; J0131; J0690; J1100; J2003; J2250; J2405; J2704; J2795; J3010

== ENCOUNTER → 2024-09-12 10:19 | Outpatient (BNV) | payer OTHER, SELFPAY | PROVIDERS: Visit Provider Orthopaedic Surgery | DX: Z47.2 Encounter for removal of internal fixation device (principal) | CPT/HCPCS: 20680 ==

== ENCOUNTER 2024-09-20 10:07 | Outpatient (REF) | payer OTHER, SELFPAY | END 2024-09-20 10:08 | disposition home or self-care (01) | LOC: HO.HOSX 10:07 | PROVIDERS: Visit Provider Physician Assistant | DX: Z13.89 Encounter for screening for other disorder (principal) ==

== ENCOUNTER 2024-09-27 09:39 | Outpatient (REF) | payer OTHER, SELFPAY ==
--- NOTE | ~2024-09-27 | XR_ITS ---
EXAMINATION: XR CLAVICLE LEFT HISTORY: M89.8X1 - Other specified disorders of bone, shoulder COMPARISON: Correlation is made with an films of the left shoulder dated 09/02/2024. FINDINGS: Two views of the left clavicle are submitted. Osseous mineralization is normal. The previously noted fixation plate and multiple orthopedic screws have been removed. There is no acute fracture. The AC joint space is maintained. The soft tissues are unremarkable. XR/XR clavicle LT IMPRESSION: Interval removal of the previously seen fixation plate and multiple screws. Electronically signed by: Darren Verduzco MD 09/27/2024 11:17 AM ALEXANDRA
== END 2024-09-27 09:40 | disposition home or self-care (01) ==
LOC: HO.HOSX 09:39
PROVIDERS: Visit Provider Physician Assistant
DX: M89.8X1 Other specified disorders of bone, shoulder (principal); S42.002D Fracture of unspecified part of left clavicle, subsequent encounter for fracture with routine healing; Z98.890 Other specified postprocedural states
CPT/HCPCS: 73000; 99212

== ENCOUNTER → 2024-09-27 09:55 | Outpatient (BNV) | payer OTHER, SELFPAY | PROVIDERS: Visit Provider Radiology Diagnostic Radiology | DX: M89.8X1 Other specified disorders of bone, shoulder (principal) | CPT/HCPCS: 73000 ==

== ENCOUNTER 2024-10-15 09:48 | Outpatient (RCR) | payer OTHER, SELFPAY ==
--- NOTE | 2024-10-26 08:56 | MHC.PT.EP ---
[facility] [place] Office [place] Office [place] Office [address] Héctor Hernandez [address] [phone] F: [phone] F: [phone] F: [phone] F: [phone] Physical Therapy Plan of Care Date of Evaluation: 10/15/24 Date of Surgery: 09/12/24 Diagnosis: Fracture of unspecified part of unspecified clavicle, initial encounter for closed fracture, Z96.9 - Presence of functional implant, unspecified Assessment: Pt is a 23 y/o male referred to PT for eval and treat of hardware removal s/p L clavicle ORIF 09/12/24 which is resulting in decreased tolerance for dressing pullovers, reaching high shelves. reaching his neck and back for hygiene as well as lifting objects of weight secondary to mild decreased shoulder L ROM, decreased L shoulder strength, surgical healing process and pain. Pt is deemed an appropriate candidate to receive skilled PT services to address their physical impairments in order to improve their functional ability. Frequency and Duration: The patient will be seen 2 x/ wk x 4 wks. Short Term Goals: initiate home program Improve baseline pain to < 4/10; initial; 6/10. Detention Goals: I with home program. improve SPADI outcome measure by at least 13 points. symmetrical AROM achieved. Improve L shoulder ER and abd MMT by at least 1/2 MMT grade. Treatment Plan: Modalities to reduce pain, spasms and effusion. Manual therapy to restore motion and function. Therapeutic exercise to improve strength and flexibility. Neuromuscular re-education for posture and balance. Therapeutic activities to return to functional activities of daily living. Electronically signed by: Quan Chung PT. Please sign and return to therapist. Thank you for your referral.
--- NOTE | 2024-10-26 08:56 | MHC.PT.DC ---
[facility] [place] Office [place] Office [place] Office [address] Héctor Hernandez [address] [phone] F: [phone] F: [phone] F: [phone] F: [phone] Physical Therapy Discharge Report Diagnosis: Fracture of unspecified part of unspecified clavicle, initial encounter for closed fracture, Z96.9 - Presence of functional implant, unspecified Date of Surgery: 09/12/24 Date of Evaluation: 10/15/24 Date of Discharge: 10/26/24 Treatments to Date: 1 Cancellations to Date: 2 No Shows to Date: Discharge Status: Visit Non-compliance Discharge Summary: Pt logged 2 no show appts after his evaluation and is DC'd per attendance policy. Electronically signed by: Quan Chung PT. Please sign and return to therapist. Thank you for your referral.
== END 2024-10-26 08:56 | disposition home or self-care (01) ==
LOC: HO.PT 09:48
PROVIDERS: Visit Provider Physician Assistant
DX: S42.002D Fracture of unspecified part of left clavicle, subsequent encounter for fracture with routine healing (principal); Z98.890 Other specified postprocedural states
CPT/HCPCS: 97110; 97161

== ENCOUNTER 2025-02-25 15:13 | Outpatient (AMB) | payer OTHER, SELFPAY ==
--- NOTE | 2025-02-25 15:17 | A.OFFPC_ITS ---
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: No Accompanied by: Self / Same As Patient Allergies No Known Allergies Allergy (Verified 02/25/25 15:34) Medication List - Last Reconciled 02/25/25 by Ryland Kaur PA-C albuterol sulfate 90 mcg/actuation (Ventolin HFA) 1 inh inhalation QID PRN [bone stimulator As directed] Tobacco use date assessed: 02/25/25 Dental Screening Dental Screen Date: 02/25/25 Did you have a dental visit in the last 12 months?: No Did you have a dental problem in the last 6 months where you did not have access to dental care?: No Was dental information given to patient?: Yes HPI Annual physical HPI Details Patient is a 24-year-old male here today for a routine annual physical. Patient has a past medical history significant for depression, anxiety and asthma. .. Mental health: Maryann has been suffering with worsening mental health over the last year. He has been more withdrawn and angry at the world. Has had a traumatic experience with law enforcement over the last year which has caused his PTSD to be very elevated. He does have a history of ADHD was treated with stimulant medication as a child. He is apprehensive and starting medication though family is concerned. He has been having trouble with attention and focus on his home tasks. Has been had a lot of trouble getting a steady job as he often has difficulty with communication and anger. He is resistant to start mental health therpy. PLAN: Will start low-dose Strattera to help him with his attention and focus, try to set patient up with mental health therapy .. Asthma: Patient has not had to use an albuterol inhaler in quite some time, he does report smoking marijuana from time to time without any issues with his breathing. Vaccines: Up-to-date with tetanus [facility] Medical History Asthma Pneumonia Clavicle fracture Surgical History History of lung surgery History of open reduction and internal fixation (ORIF) procedure (~05/13/20) Family History Mother No problems noted. Father No problems noted. Social History (Updated 02/25/25 @ 15:40 by Ryland Kaur PA-C) Housing: House Alcohol intake: current Alcohol intake frequency: a few times a month Alcohol type: beer and wine Patient Tobacco Use Status: Current everyday Tobacco user e-Cigarette/Vaping Use: Never Used Second Hand Smoke Exposure: No Substance Use Type: Marijuana Current occupational status: unemployed Cognitive needs: No Hearing needs: No Vision needs: No Questionnaire PHQ-9 Over the last 2 weeks, how often have you been bothered by any of the following problems? 1. Little interest or pleasure in doing things: not at all 2. Feeling down, depressed, or hopeless: not at all 3. Trouble falling or staying asleep, or sleeping too much: not at all 4. Feeling tired or having little energy: not at all 5. Poor appetite or overeating: not at all 6. Feeling bad about yourself - or that you are a failure or have let yourself or your family down: not at all 7. Trouble concentrating on things, such as reading the newspaper or watching television: not at all 8. Moving or speaking so slowly that other people could have noticed. Or the opposite - being so fidgety or restless that you have been moving around a lot more than usual: not at all 9. Thoughts that you would be better off or of hurting yourself in some way: not at all Total score: 0 Depression Screening Interpretation: Negative Depression Screening Done: Yes 56397 - PHQ-9 Billing: Yes Source: Developed by Drs. Darren Curiel, Latonia Guaman, Thompson Pollack and colleagues, with an educational bashir from [employer]. Thrive Questionnaire Date Thrive assessed: 02/25/25 I am a: Patient What is your living situation today?: I choose not to answer this question Within the past 12 months, did the food you bought not last and you didn't have the money to get more?: I choose not to answer this question Within the past 12 months, did you worry whether your food would run out before you got money to buy more?: I choose not to answer this question Do you have trouble paying for medicines?: I choose not to answer this question Do you have trouble getting transportation to medical appointments?: I choose not to answer this question Do you have trouble paying your heating and electricity bill?: I choose not to answer this question Do you have trouble taking care of your child, family member or friend?: I choose not to answer this question Do you have trouble with day-to-day activities such as bathing, preparing meals, shopping, managing finances, etc.?: I choose not to answer this question Are you currently unemployed and looking for a job?: I choose not to answer this question Are you interested in more education?: I choose not to answer this question Please select the resources that you would like help with: None Currently or been in a relationship where the following occur: I choose not to answer THRIVE Score: 0 AUDIT C Alcohol Use Questionnaire (AUDIT-C) 1. How often do you have a drink containing alcohol?: Never 3. How often do you have six or more drinks on one occasion?: Never Total Score: 0 DOMINIQUE-7 AMB Questionnaire DOMINIQUE-7 Date DOMINIQUE - 7 assessed: 02/25/25 Feeling nervous, anxious, or on edge: 0 = Not at all Not being able to stop or control worryin = Not at all Worrying too much about different things: 0 = Not at all Trouble relaxin = Not at all Being so restless that it is hard to sit still: 0 = Not at all Becoming easily annoyed or irritable: 0 = Not at all Feeling afraid as if something awful might happen: 0 = Not at all Total DOMINIQUE-7 score (0-4 normal; 5-9 mild; 10-14 moderate; 15-21 severe): 0 Source: Developed by Drs. Darren Curiel, Latonia Guaman, Thompson Pollack and colleagues, with an educational bashir from [employer]. DOMINIQUE-7 Assessment Billing DOMINIQUE-7 Assessment Tool: DOMINIQUE-7 Assessment 06723 Review of Systems Const Denies body aches, Denies chills, Denies excessive sweating, Denies fatigue, Denies fever(s) and Denies headache(s) Eyes Denies blurry vision ENT Denies dysphagia, Denies vertigo, Denies dizziness, Denies headache(s), Denies hearing loss and Denies tinnitus Card Denies chest pain, Denies chest pain with activity, Denies syncope, Denies irregular heart rhythm and Denies dyspnea Resp Denies chest congestion, Denies cough, Denies hemoptysis, Denies dyspnea and Denies wheezing GI Denies abdominal pain, Denies melena, Denies hematochezia, Denies coffee ground emesis, Denies dysphagia, Denies diarrhea, Denies nausea and Denies vomiting Denies difficulty urinating, Denies dysuria, Denies urinary frequency, Denies urinary hesitancy and Denies urinary urgency Musc Denies arthralgias, Denies limited range of motion, Denies muscle cramps and Denies muscle weakness Skin/Breast Denies rash and Denies skin ulcer Neuro Denies Abnormal speech present, Denies confusion, Denies vertigo, Denies dizziness, Denies syncope, Denies headache(s), Denies memory loss and Denies seizure-like activity Psych Denies anxiety, Denies confusion, Denies depression, Denies memory loss, Denies panic attacks and Denies paranoia Endo Denies excessive sweating, Denies fatigue, Denies flushing, Denies polydipsia and Denies polyuria Aller/Immun Denies wheezing Physical exam (Primary Care) Vital Signs: Last Vital Signs Pulse 100 02/25/25 15:18 BP 148/66 H 02/25/25 15:18 Pulse Ox 98 02/25/25 15:18 Oxygen Delivery Method Room Air 02/25/25 15:18 BMI result Body Mass Index 26.5 Tobacco/Smoking Status: Tobacco use Status Tobacco use date assessed 02/25/25 02/25/25 15:23 Patient Tobacco Use Status Current everyday Tobacco 02/25/25 15:40 e-Cigarette/Vaping Use Never Used 02/25/25 15:40 PHQ-9: PHQ-9 Score PHQ-9: Total score 0 02/25/25 15:51 Depression Screening Interpretation: Negative Thrive Assessment: Date of Thrive Assessment Date Thrive assessed 02/25/25 02/25/25 15:23 Currently or been in a relationship where the following occur: I choose not to answer Const General: cooperative, comfortable, no acute distress, alert and awake; No confusion Orientation/consciousness: oriented to person, oriented to place, patient oriented x3 and No confusion HENMT Head: Yes normocephalic Ears: external ears normal and TM's normal bilaterally Face and sinus: No sinus tenderness Mouth: Normal oral and palatal mucosa present and tongue normal Teeth and gingiva: dentition normal and gingiva normal Throat: Yes posterior oropharynx normal, Yes tonsils normal and Yes uvula midline Eyes Conjunctivae: conjunctivae normal Sclerae: sclerae normal Pupils: Equal, round and reactive pupils present EOM: EOMs intact bilaterally Direct Ophthalmoscopy: No no photophobia Neck Neck: Yes no lymphadenopathy, No tender and Yes no JVD Thyroid: Thyroid normal Carotids: no bruits Chest Chest palpation & inspection: no tenderness Resp Effort & Inspection: normal respiratory effort, no audible wheezes, not labored and no stridor Auscultation: no crackles, no rales, no rhonchi and no wheezes Cardio Jugular venous distension: no JVD Rate: regular rate, not bradycardic and not tachycardic Rhythm: regular rhythm Bruits: no carotid bruits Peripheral pulses: Peripheral pulses 2+ throughout GI Inspection: Yes normal to inspection, No abdominal wall ecchymosis and No visible herniation Palpation (GI): Soft to palpation, nontender, no guarding, not rigid and No hepatosplenomegaly present Auscultation: normoactive bowel sounds General: Yes no CVA tenderness Back/Spine/Pelvis Back: no CVA tenderness and No back tenderness Cervical Spine: cervical ROM normal Thoracic/Lumbar Spine: thoracic and lumbar spine normal to inspection, straight leg raise negative bilaterally, No thoraco-lumbar ROM limited and No lumbar spinal tenderness Skin Lesions: no lesions Rashes: no rashes Wounds: no wounds Neuro General: oriented to person, oriented to place, patient oriented x3, CN's II-XI intact bilaterally and No confusion Cranial nerves: Yes Equal, round and reactive pupils present and Yes Normal accommodation reflex present Cognition (Neuro): normal cognition Speech: No Abnormal speech present Gait exam (Neuro): Normal gait present Motor exam (neuro): 5/5 motor strength present throughout Extrem Right upper extremity: full ROM; no cyanosis Left upper extremity: full ROM; no cyanosis Right lower extremity: no edema Left lower extremity: no edema Psych Appearance: grossly normal Mental Status: mental status grossly normal Affect: normal affect Attitude: cooperative Thought process: Normal thought process present Coding Level of Care Code Est Pt Prev Care 18-39y(43799) Diagnoses Annual physical exam Z00.00 MDD (major depressive disorder), recurrent episode, moderate F33.1 Mild intermittent asthma without complication J45.20 Asthma complication type: uncomplicated Asthma persistence: intermittent Asthma severity: mild ADHD (attention deficit hyperactivity disorder) F90.9 PTSD (post-traumatic stress disorder) F43.10 Seizure-like activity R56.9 Additional Codes DOMINIQUE-7 Assessment Billing - DOMINIQUE-7 Assessment Tool: DOMINIQUE-7 Assessment [id number] ([id number]) PHQ-9 - 05563 - PHQ-9 Billing: Yes ([id number]) Assessment & Plan Assessment & Plan (1) Annual physical exam: Code(s): Z00.00 - Encounter for general adult medical examination without abnormal findings Category: Medical Plan: As per HPI (2) MDD (major depressive disorder), recurrent episode, moderate: Code(s): F33.1 - Major depressive disorder, recurrent, moderate Category: Medical Plan: Patient has a history of major depressive disorder. (3) Asthma: Code(s): J45.909 - Unspecified asthma, uncomplicated Category: Medical Qualifiers: Asthma complication type: uncomplicated Asthma persistence: intermittent Asthma severity: mild Qualified Code(s): J45.20 - Mild intermittent asthma, uncomplicated Plan: Patient has a history of asthma though has not had any recent asthma exacerbations or nighttime awakenings with asthma symptoms. Will supply patient with an albuterol inhaler in case of an emergency asthma exacerbation. (4) ADHD (attention deficit hyperactivity disorder): Code(s): F90.9 - Attention-deficit hyperactivity disorder, unspecified type Category: Medical Plan: Patient was previously diagnosed with ADHD as a child and was on stimulant medication. He is somewhat resistant to restart medication though when further discussion he is willing to trial on on stimulant ADHD medication. Thus will start Strattera low-dose and up titrate per response. (5) PTSD (post-traumatic stress disorder): Code(s): F43.10 - Post-traumatic stress disorder, unspecified Category: Medical Plan: As per HPI patient does suffer from PTSD symptoms as well as secondary to a traumatic event with law enforcement which led to a long legal process. (6) Seizure-like activity: Code(s): R56.9 - Unspecified convulsions Category: Medical Plan: Family reports a seizure-like activity over the last month that was involving patient passing out though this was along with some mild marijuana use. We did discuss doing an EEG to evaluate for any epileptic activity in the brain though patient declines. Orders: Orders Complete Blood Count no Diff 02/25/25 Z13.1 - Encounter for screening for diabetes mellitus Comprehensive [place]. Panel Fast 02/25/25 Z13.1 - Encounter for screening for diabetes mellitus Referrals Counseling Referral F43.10 - Post-traumatic stress disorder, unspecified Medications: New atomoxetine (Strattera) 25 mg PO DAILY 30 caps 1RF 30 days F90.9 - Attention- deficit hyperactivity disorder, unspecified type albuterol sulfate 90 mcg/actuation (Ventolin HFA) 1 inh inhalation QID 8.5 grams 1RF 4 weeks J45.20 - Mild intermittent asthma, uncomplicated Discontinued albuterol sulfate 90 mcg/actuation (Ventolin HFA) Discontinued Reason: Doctor's Order 1 inh inhalation QID PRN 8.5 grams 1RF shortness of breath or wheezing
[2025-02-25 15:18] VITALS: BP 148/66; PULSE 100; O2SAT 98; BMI 26.5
== END 2025-02-25 16:09 | disposition home or self-care (01) ==
LOC: HO.HMCH 15:13
PROVIDERS: Visit Provider Physician Assistant
DX: Z00.00 Encounter for general adult medical examination without abnormal findings (principal); F33.1 Major depressive disorder, recurrent, moderate; R56.9 Unspecified convulsions; J45.20 Mild intermittent asthma, uncomplicated; F90.9 Attention-deficit hyperactivity disorder, unspecified type; F43.10 Post-traumatic stress disorder, unspecified

== ENCOUNTER → 2025-02-25 15:13 | Outpatient (BNVA) | payer OTHER, SELFPAY | PROVIDERS: Visit Provider Physician Assistant | DX: Z00.00 Encounter for general adult medical examination without abnormal findings (principal); J45.20 Mild intermittent asthma, uncomplicated; F41.9 Anxiety disorder, unspecified; F43.10 Post-traumatic stress disorder, unspecified; F90.9 Attention-deficit hyperactivity disorder, unspecified type; F33.1 Major depressive disorder, recurrent, moderate; R56.9 Unspecified convulsions | CPT/HCPCS: 96127; 99395 ==

== ENCOUNTER 2025-04-05 04:47 | Emergency (ER) | payer OTHER, SELFPAY ==
--- NOTE | 2025-04-05 | ECG_ITS ---
Test Reason : CP Blood Pressure : */* mmHG Vent. Rate : 81 BPM Atrial Rate : 81 BPM P-R Int : 134 ms QRS Dur : 90 ms QT Int : 340 ms P-R-T Axes : 68 56 28 degrees QTcB Int : 394 ms Normal sinus rhythm Normal ECG When compared with ECG of 02-Sep-2024 08:11, PA interval has increased Referred By: Generic ED Physician Electronically Signed By: Jersey Donato
[2025-04-05 04:50] VITALS: BP 156/77; PULSE 92; RESP 18; TEMP 36.5; O2SAT 100; BMI 25.8
[2025-04-05 05:26] LABS: Hemoglobin 13.9 g/dl (14.0-18.0); NRBC Abs Auto 0.000 X10*3/uL (0.0-0.012); NRBC Pct Auto 0.0 /100WBC (0.0-0.2); PLT CLUMP 1; SCAN SMEAR FLAG 1
[2025-04-05 05:28] LABS: Hematocrit 41.0 % (42.0-52.0); Imm Gran Abs Auto 0.02 X10*3/uL (0.00-0.03); Imm Gran Pct Auto 0.3 % (0.0-0.4); Lymphocytes Absolute Auto 2.5 X10*3/uL (1.2-4.9); MANUAL DIFF FLAG SCAN; Mean Corpuscular HGB Conc 33.9 g/dl (31.0-36.0); Mean Corpuscular Hemoglobin 27.0 pg (27.0-33.0); Mean Corpuscular Volume 79.6 fL (80.0-98.0); Red Blood Count 5.15 X10*6/uL (4.60-5.80)
--- NOTE | 2025-04-05 05:38 | MHC.EDTECH ---
Pt belongings are in the debora port on shelf 1
[2025-04-05 05:43] LABS: Alanine Aminotransferase 26 U/L (0-40); Albumin Level 4.7 g/dL (3.5-5.0); Alkaline Phosphatase 54 U/L (39-117); Anion Gap 13 (12-20); Aspartate Amino Transferase 30 U/L (5-37); Blood Urea Nitrogen 15 mg/dL (9-16); Calcium 9.3 mg/dL (8.4-10.2); Carbon Dioxide 26 mmol/L (22-29); Chloride 105 mmol/L (96-108); Creatinine Clr Calc Pharmacy 97.1; Estimated Glomerular Filt Rate > 60; Potassium 3.7 mmol/L (3.3-5.1); Sodium 140 mmol/L (135-145); Total Protein 7.5 g/dL (6.5-8.0)
[2025-04-05 05:45] LABS: Troponin-I High Sensitivity 4.9 ng/L (<3.5-35.0)
[2025-04-05 05:46] LABS: Cannabinoid Screen Urine Not Detected (Not Detect)
[2025-04-05 05:48] LABS: Platelet Count 197 X10*3/uL (160-400); White Blood Count 7.1 X10*3/uL (4.8-10.8)
[2025-04-05 05:49] LABS: Acetaminophen LAB < 3 mcg/mL (<30); Salicylate < 5.0 mg/dL (15-30)
--- NOTE | 2025-04-05 06:48 | PC.NURSE ---
assumed care of pt, SI and chest pain x2 years. Pt calm and cooperative. 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
--- NOTE | 2025-04-05 06:53 | ED_ITS ---
HPI - Psych General Chief Complaint: Psychiatric Symptoms Stated Complaint: not feeling well Time Seen by Provider: 04/05/25 05:57 Source: patient Mode of arrival: ambulatory Limitations: no limitations History of Present Illness ED Provider: Dr. Elva Gomez HPI Narrative: Patient comes to the emergency room reporting chest discomfort, a bit of anxiety. Patient denies any suicidal or homicidal ideation. When he came in, patient states that he had some fears about not waking up when he goes to sleep. Patient states that all of his symptoms are chronic. According to triage, patient has reported that he had thoughts of taking pills. Patient states that he has had chronic anxiety and depression but would never hurt himself. Patient is adamant that he is not SI. Patient states that he has been to make sure that his heart is okay Related Data Previous Rx's ?Medication ?Instructions ?Recorded bone stimulator #1 ea 10/09/20 albuterol sulfate 90 mcg/actuation 1 inh inhalation QI D 4 weeks #8.5 02/25/25 aerosol inhaler (Ventolin HFA) grams atomoxetine 25 mg capsule 25 mg PO DAILY 30 days #30 c aps 02/25/25 (Strattera) albuterol sulfate 90 mcg/actuation 1 inh inhalation QI D 30 days #8.5 03/11/25 aerosol inhaler grams Allergies Allergy/AdvReac Type Severity Reaction Status Date / Time No Known Allergies Allergy Verified 04/05/25 05:01 Review of Systems 2 Review of Systems: Constitutional : No Weight loss, No Fever, No Chills, No Night Sweats, No Fatigue, No Malaise ENT/Mouth : No Hearing loss, No Ear Pain, No Nasal Congestion, No Sinus Pain, No Hoarseness, No sore throat, No Rhinorrhea, No Swallowing Difficulty Eyes: No Eye Pain, No Swelling, No Redness, No Foreign Body, No Discharge, No Vision Changes Cardiovascular : Complaining of a weird chest discomfort that has been present for 2-1/2 years, no pain,, No SOB, No Dyspnea on Exertion, No Orthopnea, No Edema, No Palpitations Respiratory : No Cough, No Sputum, No Wheezing, No Smoke Exposure, No Dyspnea Gastrointestinal : No Nausea, No Vomiting, No Diarrhea, No Constipation, No abdominal Pain, No Hematochezia, No Melena Genitourinary : no irregular bleeding, No Dysuria, No Urinary Frequency, No Hematuria, No Urinary Incontinence, No Urgency, No Flank Pain, No Urinary Flow Changes, No Hesitancy Musculoskeletal : No joint pain, No Myalgias, No Joint Swelling Skin : No Skin Lesions, No rash Neuro : No Weakness, No Numbness, No Paresthesias, No Loss of Consciousness, No Dizziness, No Headache Psych : Chronic anxiety and depression, adamant that he is not SI or HI Heme/Lymph: No Bruising, No Bleeding,No Lymphadenopathy Endocrine : No Polyuria, No Polydipsia, No Temperature Intolerance ON LICENSE OF [facility] Past Medical History Medical History Asthma Pneumonia Clavicle fracture Surgical History History of lung surgery History of open reduction and internal fixation (ORIF) procedure (~05/13/20) Family History Family History Mother No problems noted. Father No problems noted. Social History Social History (Updated 02/25/25 @ 15:40 by Ryland Kaur PA-C) Housing: House Alcohol intake: current Alcohol intake frequency: a few times a month Alcohol type: beer and wine Patient Tobacco Use Status: Current everyday Tobacco user e-Cigarette/Vaping Use: Never Used Second Hand Smoke Exposure: No Substance Use Type: Marijuana Advance Directives: No Advance Directives Information Provided: Yes Current occupational status: unemployed Cognitive needs: No Hearing needs: No Vision needs: No Physical Exam 2 Exam: Exam: Appearance: Alert. Oriented X3. No acute distress. Eyes: Pupils equal, round and reactive to light. ENT: Pharynx normal. Neck: Normal inspection. Neck supple. No lymph nodes noted. No crepitus CVS: Normal heart rate and rhythm. Pulses normal. Normal S1 and S2 Respiratory: No respiratory distress. Breath sounds normal. No Wheezing. No rales Abdomen: Soft and nontender. No rigidity. No distention. Skin: Skin warm and dry. Normal skin color. Normal skin turgor. Extremities: No lower extremity edema. No Lacerations. No Rash Neuro: Oriented X 3. No motor deficit. No sensory deficit. Moving all extremities. No slurred speech. CN 2 through 12 grossly intact Psych: calm, cooperative, normal affect Vital Signs: Vital Signs: Last Vital Signs Temp 97.7 F 04/05/25 04:50 Pulse 92 04/05/25 04:50 Resp 18 04/05/25 04:50 BP 156/77 H 04/05/25 04:50 Pulse Ox 100 04/05/25 04:50 O2 Del Method Room Air 04/05/25 04:50 BMI result Body Mass Index 25.8 Medical Decision Making Medical Decision Making [facility] Narrative: I had a prolonged conversation with the patient, patient is very adamant that he is not suicidal or homicidal. Patient admits that he said that he has chronic depression and some thoughts of hurting himself. However, patient states that he did not mean any of the above-mentioned statements. Patient states that he is absolutely sure that he would never hurt himself or others. Patient states that he would like to follow-up with his primary care physician. Patient is awake, alert and oriented x3, coherent, no signs of intoxication or under the influence of drugs, no acute distress. There is no previous history of SI or HI, no psychiatric history. Patient states that he will follow-up with his primary care physician. Again, patient is promises that he is not SI or HI At this time, Section 12 is not indicated. Per patient's request, patient will be sent home. My interpretation of EKG: Normal sinus rhythm, heart rate 81, no ST segment depression or elevation, no T-wave inversion, QTC 394 My interpretation of labs: No significant abnormality in patient's hematology and chemistry, urine toxicology negative for drugs of abuse I reviewed patient's PCP visit from February 2025, 1 month ago. Overall, patient's seems to have history of PTSD, very elevated, trouble with the law enforcement, patient has trouble communicating with others, no history of SI HI. Differential Diagnosis Differential Diagnoses: The differential diagnosis associated with the presentation includes (Anxiety, palpitations) Lab Data [facility] Lab Attestation statement: I reviewed the patient's lab results. 04/05/25 05:17 04/05/25 05:17 Labs: Lab Results 04/05/25 04/05/25 Range/Units 05:17 05:24 WBC 7.1 (4.8-10.8) X10*3/uL RBC 5.15 (4.60-5.80) X10*6/uL Hgb 13.9 L (14.0-18.0) g/dl Hct 41.0 L (42.0-52.0) % MCV 79.6 L (80.0-98.0) fL MCH 27.0 (27.0-33.0) pg MCHC 33.9 (31.0-36.0) g/dl RDW 13.5 (11.0-16.0) % Plt Count 197 D (160-400) X10*3/uL MPV 10.1 (9.4-12.4) fL Immature Gran % (Auto) 0.3 (0.0-0.4) % Neut % (Auto) 49.5 (45-73) % Lymph % (Auto) 35.3 (20-40) % [place] % (Auto) 9.1 (2-11) % Eos % (Auto) 4.8 H (0-4) % Baso % (Auto) 1.0 (0-2) % Lymph # (Auto) 2.5 (1.2-4.9) X10*3/uL [place] # (Auto) 0.6 (0.1-1.2) X10*3/uL Eos # (Auto) 0.3 (0.0-0.4) X10*3/uL Baso # (Auto) 0.1 (0.0-0.2) X10*3/uL Abs Immat Gran (auto) 0.02 (0.00-0.03) X10*3/uL Absolute Neuts (auto) 3.5 (2.0-8.3) x10*3/uL Absolute Nucleated RBC 0.000 (0.0-0.012) X10*3/uL Nucleated RBC % (auto) 0.0 (0.0-0.2) /100WBC Smear Tech's Comments VERIFIED Sodium 140 (135-145) mmol/L Potassium 3.7 (3.3-5.1) mmol/L Chloride 105 (96-108) mmol/L Carbon Dioxide 26 (22-29) mmol/L Anion Gap 13 (12-20) BUN 15 (9-16) mg/dL Creatinine 1.20 (0.5-1.4) mg/dL Estim Creat Clear Calc 97.1 Estimated GFR > 60 Random Glucose 120 H (60-115) mg/dL Calcium 9.3 (8.4-10.2) mg/dL Total Bilirubin 0.3 (0.0-1.0) mg/dL AST 30 (5-37) U/L ALT 26 (0-40) U/L Alkaline Phosphatase 54 (39-117) U/L Troponin I High Sens 4.9 (<3.5-35.0) ng/L Total Protein 7.5 (6.5-8.0) g/dL Albumin 4.7 (3.5-5.0) g/dL Salicylates < 5.0 L (15-30) mg/dL Urine Opiates Screen Not Detected (Not Detect) Ur Buprenorphine Scrn Not Detected (Not Detect) ng/mL Ur Oxycodone Screen Not Detected (Not Detect) ng/mL Urine Methadone Screen Not Detected (Not Detect) ng/mL Urine Fentanyl Screen Not Detected (Not Detect) Acetaminophen < 3 (<30) mcg/mL Ur Barbiturates Screen Not Detected (Not Detect) Ur Phencyclidine Scrn Not Detected (Not Detect) Ur Amphetamines Screen Not Detected (Not Detect) U Benzodiazepines Scrn Not Detected (Not Detect) Urine Cocaine Screen Not Detected (Not Detect) U Marijuana (THC) Screen Not Detected (Not Detect) Discharge Plan Discharge Clinical Impression: Palpitations Patient Disposition: Home, Self-Care Instructions: Heart Palpitations (ED), Anxiety (ED) Additional Instructions: Please follow-up with your primary care physician tomorrow. If you have any worsening or new symptoms, please return to the emergency room or call 911 Prescriptions: No Action albuterol sulfate 90 mcg/actuation HFA aerosol inhaler 1 inh inhalation QID 30 Days Qty: 8.5 3RF (DME) bone stimulator See Rx Instructions .Route .MEDSUPPLY Qty: 1 0RF Rx Instructions: As directed atomoxetine [Strattera] 25 mg capsule 25 mg PO DAILY 30 Days Qty: 30 1RF albuterol sulfate [Ventolin HFA] 90 mcg/actuation HFA aerosol inhaler 1 inh inhalation QID 28 Days Qty: 8.5 1RF Interventions: [place]-Suicide Risk Severity Scale Last Done: 04/05/25 06:47 Print Language: [place]
[2025-04-05 07:56] VITALS: BP 156/77; PULSE 92; RESP 18; TEMP 36.5; O2SAT 100
== END 2025-04-05 07:58 | disposition home or self-care (01) ==
PROVIDERS: Emergency Provider Emergency Medicine; PCP Internal Medicine
DX: R00.2 Palpitations (principal); F41.1 Generalized anxiety disorder; R45.851 Suicidal ideations; F33.1 Major depressive disorder, recurrent, moderate; Z51.81 Encounter for therapeutic drug level monitoring; Z79.899 Other long term (current) drug therapy; F17.210 Nicotine dependence, cigarettes, uncomplicated
CPT/HCPCS: 36415; 80053; 80143; 80179; 80307; 84484; 85025; 93005; 99284

== ENCOUNTER → 2025-04-05 05:03 | Outpatient (BNV) | payer OTHER, SELFPAY | PROVIDERS: Emergency Provider Emergency Medicine; PCP Internal Medicine; Visit Provider Internal Medicine Cardiovascular Disease | DX: R07.89 Other chest pain (principal) | CPT/HCPCS: 93010 ==

== ENCOUNTER 2025-04-11 13:16 | Outpatient (AMB) | payer OTHER, SELFPAY ==
--- NOTE | 2025-04-11 13:19 | A.OFFPC_ITS ---
Vital Signs 04/11/25 13:20 Height 5 ft 10 in Weight 189 lb 2 oz BMI 27.1 BP 142/68 H Blood Pressure Location Lt brachial Position Sitting Pulse 104 H Pulse Source Pulse Oximeter Temp 97.1 F Temp Source Temporal Artery Scan Pulse Oximetry (%) 99 Oxygen Delivery Method Room Air Intake Visit Reasons: ADHD/ PTSD Allergies No Known Allergies Allergy (Verified 04/11/25 13:29) Medication List - Last Reconciled 04/11/25 by Ryland Kaur PA-C albuterol sulfate 90 mcg/actuation (Ventolin HFA) 1 inh inhalation QID 4 weeks albuterol sulfate 90 mcg/actuation 1 inh inhalation QID 30 days atomoxetine (Strattera) 25 mg PO DAILY 30 days [bone stimulator As directed] Tobacco use date assessed: 04/11/25 Dental Screening Dental Screen Date: 04/11/25 Did you have a dental visit in the last 12 months?: Yes Did you have a dental problem in the last 6 months where you did not have access to dental care?: No Was dental information given to patient?: Patient has dentist HPI ADHD/ PTSD HPI Details Patient is a 24-year-old male here today for follow-up visit. Patient recently seen at the ER for increased agitation and palpitations. Workup including labs and EKG within normal limits. Mental health: Maryann has been suffering with worsening mental health over the last year. He has been more withdrawn and angry at the world. Has had a traumatic experience with law enforcement over the last year which has caused his PTSD to be very elevated. He does have a history of ADHD was treated with stimulant medication as a child. He has started Strattera low-dose 25 mg and reports a bit of benefit on his attention and focus. He is still unable to work as he has been unable to have meaningful relationships or much contact with other folks in a meaningful way. He is awaiting disability due to his mental health. He is also awaiting to be established with a mental health therapist through a local mental health group. .. Laboratory Tests 06/28/24 04/05/25 09:45 05:17 Hgb 15.2 13.9 L Hct 41.0 L MCV 79.6 L PFSH Medical History Asthma Pneumonia Clavicle fracture Surgical History History of lung surgery History of open reduction and internal fixation (ORIF) procedure (~05/13/20) Family History Mother No problems noted. Father No problems noted. Social History Housing: House Alcohol intake: current Alcohol intake frequency: a few times a month Alcohol type: beer and wine Patient Tobacco Use Status: Former Tobacco user e-Cigarette/Vaping Use: Never Used Second Hand Smoke Exposure: No Substance Use Type: Marijuana Current occupational status: unemployed Cognitive needs: No Hearing needs: No Vision needs: No Questionnaire PHQ-9 Over the last 2 weeks, how often have you been bothered by any of the following problems? 1. Little interest or pleasure in doing things: not at all 2. Feeling down, depressed, or hopeless: not at all 3. Trouble falling or staying asleep, or sleeping too much: not at all 4. Feeling tired or having little energy: not at all 5. Poor appetite or overeating: not at all 6. Feeling bad about yourself - or that you are a failure or have let yourself or your family down: not at all 7. Trouble concentrating on things, such as reading the newspaper or watching television: not at all 8. Moving or speaking so slowly that other people could have noticed. Or the opposite - being so fidgety or restless that you have been moving around a lot more than usual: not at all 9. Thoughts that you would be better off or of hurting yourself in some way: not at all Total score: 0 Depression Screening Interpretation: Negative Depression Screening Done: Yes Source: Developed by Drs. Darren Curiel, Latonia Guaman, Thompson Pollack and colleagues, with an educational bashir from [employer]. Thrive Questionnaire Date Thrive assessed: 02/25/25 I am a: Patient What is your living situation today?: I choose not to answer this question Within the past 12 months, did the food you bought not last and you didn't have the money to get more?: I choose not to answer this question Within the past 12 months, did you worry whether your food would run out before you got money to buy more?: I choose not to answer this question Do you have trouble paying for medicines?: I choose not to answer this question Do you have trouble getting transportation to medical appointments?: I choose not to answer this question Do you have trouble paying your heating and electricity bill?: I choose not to answer this question Do you have trouble taking care of your child, family member or friend?: I choose not to answer this question Do you have trouble with day-to-day activities such as bathing, preparing meals, shopping, managing finances, etc.?: I choose not to answer this question Are you currently unemployed and looking for a job?: I choose not to answer this question Are you interested in more education?: I choose not to answer this question Please select the resources that you would like help with: None Currently or been in a relationship where the following occur: I choose not to answer THRIVE Score: 0 AUDIT C Alcohol Use Questionnaire (AUDIT-C) 1. How often do you have a drink containing alcohol?: Never 3. How often do you have six or more drinks on one occasion?: Never Total Score: 0 DOMINIQUE-7 AMB Questionnaire DOMINIQUE-7 Date DOMINIQUE - 7 assessed: 02/25/25 Feeling nervous, anxious, or on edge: 0 = Not at all Not being able to stop or control worryin = Not at all Worrying too much about different things: 0 = Not at all Trouble relaxin = Not at all Being so restless that it is hard to sit still: 0 = Not at all Becoming easily annoyed or irritable: 0 = Not at all Feeling afraid as if something awful might happen: 0 = Not at all Total DOMINIQUE-7 score (0-4 normal; 5-9 mild; 10-14 moderate; 15-21 severe): 0 Source: Developed by Drs. Darren Curiel, Latonia Guaman, Thompson Pollack and colleagues, with an educational bashir from [employer]. Review of Systems Const Denies headache(s) Eyes Denies loss of vision ENT Denies vertigo, Denies dizziness, Denies headache(s) and Denies sore throat Card Denies chest pain, Denies leg edema and Denies lightheadedness Resp Denies cough, Denies hemoptysis and Denies wheezing GI Denies abdominal pain, Denies melena, Denies constipation, Denies diarrhea and Denies vomiting Denies dysuria, Denies urinary frequency and Denies urinary urgency Musc Denies arthralgias, Denies joint swelling, Denies numbness and Denies tingling Neuro Denies Abnormal speech present, Denies behavioral changes, Denies vertigo, Denies dizziness, Denies headache(s), Denies loss of vision, Denies memory loss, Denies numbness and Denies tingling Psych Denies anxiety, Denies behavioral changes, Denies depression, Denies memory loss and Denies panic attacks Gregorio/Lymph Denies easy bleeding and Denies easy bruising Aller/Immun Denies wheezing Physical exam (Primary Care) Vital Signs: Last Vital Signs Temp 97.1 F 04/11/25 13:20 Pulse 104 H 04/11/25 13:20 BP 142/68 H 04/11/25 13:20 Pulse Ox 99 04/11/25 13:20 Oxygen Delivery Method Room Air 04/11/25 13:20 BMI result Body Mass Index 27.1 Tobacco/Smoking Status: Tobacco use Status Tobacco use date assessed 04/11/25 04/11/25 13:26 Patient Tobacco Use Status Former Tobacco user 04/11/25 13:26 e-Cigarette/Vaping Use Never Used 04/11/25 13:26 PHQ-9: PHQ-9 Score PHQ-9: Total score 0 04/11/25 13:32 Depression Screening Interpretation: Negative Thrive Assessment: Date of Thrive Assessment Date Thrive assessed 02/25/25 04/11/25 13:26 Currently or been in a relationship where the following occur: I choose not to answer Const General: healthy appearing, no acute distress, alert and awake Nutritional Appearance: well nourished Orientation/consciousness: oriented to person, oriented to place and oriented to time HENMT Ears: TM's normal bilaterally General nose exam: Normal nasal mucous membranes and turbinates present Eyes Conjunctivae: conjunctivae normal Sclerae: sclerae normal Pupils: Equal, round and reactive pupils present Neck Neck: Yes no lymphadenopathy and Yes no JVD Thyroid: Thyroid normal Carotids: no bruits Resp Effort & Inspection: normal respiratory effort and not tachypneic Auscultation: no crackles, no rales, no rhonchi and no wheezes Cardio Rate: regular rate Rhythm: regular rhythm Heart sounds: no murmurs and normal S1 and S2 GI Palpation (GI): Soft to palpation, nontender, no hepatomegaly and no splenomegaly Auscultation: normal bowel sounds Skin General skin exam: no rashes or lesions noted and dry skin Neuro General: oriented to person, oriented to place and oriented to time Cranial nerves: Yes Equal, round and reactive pupils present Speech: No Abnormal speech present Gait exam (Neuro): Normal gait present Motor exam (neuro): no tremor noted Extrem Right upper extremity: full ROM Left upper extremity: full ROM Right lower extremity: full ROM; no edema Left lower extremity: full ROM; no edema Psych Mental Status: mental status grossly normal Speech and movement: Normal speech and movement present Affect: normal affect Attitude: cooperative Thought process: Normal thought process present Coding Level of Care Code Est Pt Level 4 (03529) Diagnoses Attention deficit hyperactivity disorder (ADHD), predominantly inattentive type F90.0 Attention deficit-hyperactivity disorder type: predominantly inattentive MDD (major depressive disorder), recurrent episode, moderate F33.1 PTSD (post-traumatic stress disorder) F43.10 Seizure-like activity R56.9 Assessment & Plan Assessment & Plan (1) ADHD (attention deficit hyperactivity disorder): Code(s): F90.9 - Attention-deficit hyperactivity disorder, unspecified type Category: Medical Qualifiers: Attention deficit-hyperactivity disorder type: predominantly inattentive Qualified Code(s): F90.0 - Attention-deficit hyperactivity disorder, predominantly inattentive type Plan: The patient is currently on Strattera (Atomoxetine) 25 mg daily for ADHD, reporting improved wakefulness and activity levels. Advised to adhere to prescribed dosing to avoid adverse effects experienced with higher doses. (2) MDD (major depressive disorder), recurrent episode, moderate: Code(s): F33.1 - Major depressive disorder, recurrent, moderate Category: Medical Plan: Patient has a history of major depressive disorder. (3) PTSD (post-traumatic stress disorder): Code(s): F43.10 - Post-traumatic stress disorder, unspecified Category: Medical Plan: As per HPI patient does suffer from PTSD symptoms as well as secondary to a traumatic event with law enforcement which led to a long legal process. Is currently trying to get disability due to his mental health disorders as he has not been able to find meaningful work due to his mental health disabilities (4) Seizure-like activity: Code(s): R56.9 - Unspecified convulsions Category: Medical Plan: Family reports a seizure-like activity over the last month that was involving patient passing out though this was along with some mild marijuana use. We did discuss doing an EEG to evaluate for any epileptic activity in the brain though patient declines. Medications: New ferrous sulfate 325 mg PO DAILY 30 tabs 2RF 30 days D50.9 - Iron deficiency anemia, unspecified
[2025-04-11 13:20] VITALS: BP 142/68; PULSE 104; TEMP 36.2; O2SAT 99; BMI 27.1
--- OUTSIDE RECORDS SUMMARY | 2025-04-11 13:26 | XMS_ITS | Clinical Summary ---
Author Organization [facility] Address [address] [address] Phone Care Team Providers Care Veterinary Practitioner Name Role Phone Pcp, Unknown Primary Care Provider Unavailabl e Allergies No known active allergies Social History Tobacco Use Types Packs/Day Years Used Date Smoking Tobacco: Never Assessed Education Answer Date Recorded Are you interested in more education? Not on vic e 12/18/2022 Are you concerned about learning? Not on file 12/18/2022 No 12/18/2022 No 12/18/2022 Digital Access Answer Date Recorded No 01/16/2023 No 01/16/2023 Reliable internet access at home? Not on file 01/16/2023 Device with a working camera? Not on file Sex and Gender Information Value Date Recorded Sex Assigned at Not on file Legal Sex Male 9:07 AM EDT Gender Identity Not on file Sexual Orientation Not on file Last Filed Vital Signs Vital Sign Reading Time Taken Comments Blood Pressure 137/85 03/25/2022 9:40 AM EDT Pulse 53 03/25/2022 9:40 AM EDT Temperature 36.9 C (98.4 F) 03/25/2022 9:40 AM EDT Respiratory Rate 18 03/25/2022 9:40 AM EDT Oxygen Saturation 100% 03/25/2022 9:40 AM EDT Inhaled Oxygen Concentration - - Weight - - Height - - Body Mass Index - - Plan of Treatment Health Maintenance Due Date Last Done Comments Adult Td,Tdap Booster 1999 DEPRESSION SCREENING 2011 SMOKING Hx and SMOKELESS TOB ACCO SCREENING 12/23/2012 HPV VACCINES (1 - Male 3-dos e series) 12/23/2014 HEPATITIS C SCREENING 12/23/2017 HIV ONE-TIME SCREENING (18-6 5 YEARS) 12/23/2017 COVID-19 VACCINE (2023-2 5 season) 2024 HEPATITIS A VACCINES Aged Out No long er eligible based on patient's age to complete this topic HIB VACCINES Aged Out No longer eligi ble based on patient's age to complete this topic MENINGOCOCCAL VACCINES (ACWY) Aged Out No longer eligible based on patient's age to complete this topic MENINGOCOCCAL VACCINES (B) Aged Out N o longer eligible based on patient's age to complete this topic PNEUMOCOCCAL VACCINES (0-49 years) Aged Out No longer eligible based on patient's age to complete this topic Medical Devices Not on file Insurance ACO ACO ACO ACO ACO ACO Member Subscriber Plan / Payer (Ef fective 2022-Present) Name:Earl Kunal Relation to Subscriber:Self Name:Earl Kunal Payer ID:[id number] Group ID:[id number] Type:Medicaid Address: [place] [id number] ACO ACO ACO [employer] Care Teams Veterinary Practitioner Relationship Specialty Start Date End Date Pcp, Unknown PCP - General 03/25/22 Additional Source Comments The information contained in this document represents components of the legal health record. It is not the complete legal health record.[facility]
== END 2025-04-11 13:56 | disposition home or self-care (01) ==
LOC: HO.HMCH 13:17
PROVIDERS: PCP Physician Assistant; Visit Provider Physician Assistant
DX: F90.0 Attention-deficit hyperactivity disorder, predominantly inattentive type (principal); F33.1 Major depressive disorder, recurrent, moderate; F43.10 Post-traumatic stress disorder, unspecified; R56.9 Unspecified convulsions

== ENCOUNTER → 2025-04-11 13:16 | Outpatient (BNVA) | payer OTHER, SELFPAY | PROVIDERS: PCP Physician Assistant; Visit Provider Physician Assistant | DX: R45.1 Restlessness and agitation (principal); R00.2 Palpitations; F43.10 Post-traumatic stress disorder, unspecified; F90.0 Attention-deficit hyperactivity disorder, predominantly inattentive type; R56.9 Unspecified convulsions; F33.1 Major depressive disorder, recurrent, moderate; D50.9 Iron deficiency anemia, unspecified; Z79.899 Other long term (current) drug therapy | CPT/HCPCS: 99212 ==

== ENCOUNTER 2025-07-09 14:10 | Outpatient (AMB) | payer OTHER, SELFPAY ==
--- NOTE | 2025-07-09 14:18 | A.OFFPC_ITS ---
Vital Signs 07/09/25 14:19 Height 5 ft 10 in Weight 202 lb BMI 29.0 BP 130/8 L Blood Pressure Location Lt brachial Position Sitting Pulse 88 Pulse Source Pulse Oximeter Temp 97.3 F Temp Source Temporal Artery Scan Pulse Oximetry (%) 96 Oxygen Delivery Method Room Air Intake Visit Reasons: f/u DOMINIQUE/ PTSD Intake Note: Patient is here to follow up on DOMINIQUE, PTSD. Resolution Expert Required: No Customer Success Manager: Not Required per policy Accompanied by: Self / Same As Patient Allergies No Known Allergies Allergy (Verified 07/09/25 14:28) Medication List - Last Reconciled 07/09/25 by Ryland Kaur PA-C albuterol sulfate 90 mcg/actuation 1 inh inhalation QID 30 days atomoxetine (Strattera) 25 mg PO DAILY 30 days [bone stimulator As directed] ferrous sulfate 325 mg PO DAILY Tobacco use date assessed: 07/09/25 Dental Screening Dental Screen Date: 04/11/25 HPI f/u DOMINIQUE/ PTSD HPI Details Patient is a 24-year-old male here today for follow-up visit. Patient has a past medical history significant for major depressive disorder, PTSD and hyperactive attention deficit disorder. Mental health: Kunal has been suffering with worsening mental health over the last year. He has been more withdrawn and angry at the world. Has had a traumatic experience with law enforcement over the last year which has caused his PTSD to be very elevated. He does have a history of ADHD was treated with stimulant medication as a child. He has started Strattera low-dose 25 mg and reports a bit of benefit on his attention and focus. He is still unable to work as he has been unable to have meaningful relationships or much contact with other folks in a meaningful way. He is awaiting disability due to his mental health. He is also awaiting to be established with a mental health therapist through a local mental health group. [facility] Medical History Asthma Pneumonia Clavicle fracture Surgical History History of lung surgery History of open reduction and internal fixation (ORIF) procedure (~05/13/20) Family History Mother No problems noted. Father No problems noted. Social History Housing: House Alcohol intake: current Alcohol intake frequency: a few times a month Alcohol type: beer and wine Patient Tobacco Use Status: Former Tobacco user e-Cigarette/Vaping Use: Never Used Second Hand Smoke Exposure: Yes Substance Use Type: Marijuana service: No Current occupational status: unemployed Cognitive needs: No Hearing needs: No Vision needs: No Questionnaire Thrive Questionnaire Date Thrive assessed: 02/25/25 I am a: Patient What is your living situation today?: I choose not to answer this question Within the past 12 months, did the food you bought not last and you didn't have the money to get more?: I choose not to answer this question Within the past 12 months, did you worry whether your food would run out before you got money to buy more?: I choose not to answer this question Do you have trouble paying for medicines?: I choose not to answer this question Do you have trouble getting transportation to medical appointments?: I choose not to answer this question Do you have trouble paying your heating and electricity bill?: I choose not to answer this question Do you have trouble taking care of your child, family member or friend?: I choose not to answer this question Do you have trouble with day-to-day activities such as bathing, preparing meals, shopping, managing finances, etc.?: I choose not to answer this question Are you currently unemployed and looking for a job?: I choose not to answer this question Are you interested in more education?: I choose not to answer this question Please select the resources that you would like help with: None Currently or been in a relationship where the following occur: I choose not to answer THRIVE Score: 0 DOMINIQUE-7 AMB Questionnaire DOMINIQUE-7 Date DOMINIQUE - 7 assessed: 02/25/25 Source: Developed by Drs. Darren Curiel, Latonia Guaman, Thompson Pollack and colleagues, with an educational bashir from [employer]. Review of Systems Const Denies headache(s) Eyes Denies loss of vision ENT Denies vertigo, Denies dizziness, Denies headache(s) and Denies sore throat Card Denies chest pain, Denies leg edema and Denies lightheadedness Resp Denies cough, Denies hemoptysis and Denies wheezing GI Denies abdominal pain, Denies melena, Denies constipation, Denies diarrhea and Denies vomiting Denies dysuria, Denies urinary frequency and Denies urinary urgency Musc Denies arthralgias, Denies joint swelling, Denies numbness and Denies tingling Neuro Denies Abnormal speech present, Denies behavioral changes, Denies vertigo, Denies dizziness, Denies headache(s), Denies loss of vision, Denies memory loss, Denies numbness and Denies tingling Psych Denies anxiety, Denies behavioral changes, Denies depression, Denies memory loss and Denies panic attacks Gregorio/Lymph Denies easy bleeding and Denies easy bruising Aller/Immun Denies wheezing Physical exam (Primary Care) Vital Signs: Last Vital Signs Temp 97.3 F 07/09/25 14:19 Pulse 88 07/09/25 14:19 BP 130/8 L 07/09/25 14:19 Pulse Ox 96 07/09/25 14:19 Oxygen Delivery Method Room Air 07/09/25 14:19 BMI result Body Mass Index 29.0 Tobacco/Smoking Status: Tobacco use Status Tobacco use date assessed 07/09/25 07/09/25 14:26 Patient Tobacco Use Status Former Tobacco user 07/09/25 14:26 e-Cigarette/Vaping Use Never Used 07/09/25 14:26 Thrive Assessment: Date of Thrive Assessment Date Thrive assessed 02/25/25 07/09/25 14:26 Currently or been in a relationship where the following occur: I choose not to answer Const General: healthy appearing, no acute distress, alert and awake Nutritional Appearance: well nourished Orientation/consciousness: oriented to person, oriented to place and oriented to time [facility] Ears: TM's normal bilaterally General nose exam: Normal nasal mucous membranes and turbinates present Eyes Conjunctivae: conjunctivae normal Sclerae: sclerae normal Pupils: Equal, round and reactive pupils present Neck Neck: Yes no lymphadenopathy and Yes no JVD Thyroid: Thyroid normal Carotids: no bruits Resp Effort & Inspection: normal respiratory effort and not tachypneic Auscultation: no crackles, no rales, no rhonchi and no wheezes Cardio Rate: regular rate Rhythm: regular rhythm Heart sounds: no murmurs and normal S1 and S2 GI Palpation (GI): Soft to palpation, nontender, no hepatomegaly and no splenomegaly Auscultation: normal bowel sounds Skin General skin exam: no rashes or lesions noted and dry skin Neuro General: oriented to person, oriented to place and oriented to time Cranial nerves: Yes Equal, round and reactive pupils present Speech: No Abnormal speech present Gait exam (Neuro): Normal gait present Motor exam (neuro): no tremor noted Extrem Right upper extremity: full ROM Left upper extremity: full ROM Right lower extremity: full ROM; no edema Left lower extremity: full ROM; no edema Psych Mental Status: mental status grossly normal Speech and movement: Normal speech and movement present Affect: normal affect Attitude: cooperative Thought process: Normal thought process present Coding Level of Care Code Est Pt Level 4 (59825) Diagnoses Attention deficit hyperactivity disorder (ADHD), predominantly inattentive type F90.0 Attention deficit-hyperactivity disorder type: predominantly inattentive PTSD (post-traumatic stress disorder) F43.10 Iron deficiency anemia, unspecified iron deficiency anemia type D50.9 Iron deficiency anemia type: unspecified iron deficiency Impaired glucose metabolism R73.09 Assessment & Plan Assessment & Plan (1) ADHD (attention deficit hyperactivity disorder): Code(s): F90.9 - Attention-deficit hyperactivity disorder, unspecified type Category: Medical Qualifiers: Attention deficit-hyperactivity disorder type: predominantly inattentive Qualified Code(s): F90.0 - Attention-deficit hyperactivity disorder, predominantly inattentive type Plan: The patient is currently on Strattera (Atomoxetine) 25 mg daily for ADHD, reporting improved wakefulness and activity levels. Advised to adhere to prescribed dosing to avoid adverse effects experienced with higher doses. (2) PTSD (post-traumatic stress disorder): Code(s): F43.10 - Post-traumatic stress disorder, unspecified Category: Medical Plan: As per HPI patient does suffer from PTSD symptoms as well as secondary to a traumatic event with law enforcement which led to a long legal process. Is currently trying to get disability due to his mental health disorders as he has not been able to find meaningful work due to his mental health disabilities (3) Iron deficiency anemia: Code(s): D50.9 - Iron deficiency anemia, unspecified Category: Medical Qualifiers: Iron deficiency anemia type: unspecified iron deficiency Qualified Code(s): D50.9 - Iron deficiency anemia, unspecified Plan: Has been noted to have slightly low RBC and hemoglobin. Has started on iron supplementation which he takes an intermittent basis. Will recheck his iron and CBC before next office visit. (4) Impaired glucose metabolism: Code(s): R73.09 - Other abnormal glucose Category: Medical Plan: Patient did have an elevated random blood sugar. Advised on getting fasting labs including an A1c to eval for diabetes. Orders: Orders IRON PROFILE 07/09/25 D50.9 - Iron deficiency anemia, unspecified Complete Blood Count no Diff 07/09/25 D50.9 - Iron deficiency anemia, unspecified Comprehensive [place]. Panel Fast 07/09/25 R73.09 - Other abnormal glucose
[2025-07-09 14:19] VITALS: BP 130/8; PULSE 88; TEMP 36.3; O2SAT 96; BMI 29.0
--- OUTSIDE RECORDS SUMMARY | 2025-07-10 09:30 | XMS_ITS | Clinical Summary ---
Author Organization [facility] Address [address] [address] Phone Care Team Providers Care Parts Department Manager Name Role Phone Pcp, Unknown Primary Care [...] HIV ONE-TIME SCREENING (18-6 5 YEARS) 12/23/2017 INFLUENZA VACCINE (#1) 2025 COVID-19 VACCINE ( - 2024-2 6 season) 2025 HEPATITIS A VACCINES Aged Out No long er eligible based on patient's age to complete this topic HIB VACCINES Aged Out No longer eligi ble based on patient's age to complete this topic IPV VACCINES Aged Out No longer eligi ble [...] on file Insurance ACO ACO ACO [employer] A[employer] A[employer] [place] [address] [address] [place] [address] [employer] Care Teams Parts Department Manager Relationship Specialty Start Date End Date Pcp, Unknown PCP - General 03/25/22 Additional Source Comments The information contained in this document represents components of the legal health record. It is not the complete legal health record[facility]
== END 2025-07-09 15:03 | disposition home or self-care (01) ==
LOC: HO.HMCH 14:10
PROVIDERS: PCP Physician Assistant; Visit Provider Physician Assistant
DX: F90.0 Attention-deficit hyperactivity disorder, predominantly inattentive type (principal); F43.10 Post-traumatic stress disorder, unspecified; D50.9 Iron deficiency anemia, unspecified; R73.09 Other abnormal glucose

== ENCOUNTER → 2025-07-09 14:10 | Outpatient (BNVA) | payer OTHER, SELFPAY | PROVIDERS: PCP Physician Assistant; Visit Provider Physician Assistant | DX: F90.0 Attention-deficit hyperactivity disorder, predominantly inattentive type (principal); F43.10 Post-traumatic stress disorder, unspecified; D50.9 Iron deficiency anemia, unspecified; R73.09 Other abnormal glucose | CPT/HCPCS: 99212 ==